=== PATIENT | female | born 2000 | race Caucasian/White ===

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

== ENCOUNTER 2018-02-03 13:59 | Observation (INO) | payer OTHER ==
--- OUTSIDE RECORDS SUMMARY | 2018-02-03 14:05 | XMS REPORT ---
:2000 External Reference #:[id number] Author Organization [facility] Address [address] [place] [id number] Phone [phone] Care Team Providers Name Role Phone Caleb Pardo MD Primary Care Physician Unavailable Payers Type Date Identification Numbers Payment Provider Subscriber Commercial Effective: Policy Number: [id number] [employer]etang[employer] Wadecy Ayala 2014 PayID: [id number] [address] [place] [address] Commercial Effective: 2014 Policy Number: Mary Estrella Marissa Ayala [id number] Expires: 2014 PayID: [id number] [address] [place] [address] Commercial Effective: 2014 Policy Number: Cigang[employer]/Conn Yoli Ayala [id number] [employer] Expires: 2014 Group Number: [id number] [address] [place] [address] PayID: [id number] ARIES Mckeon [id number] Problems Date Description Provider Status Onset: 12/06/2014 Dysfunctional uterine bleeding Caleb Pardo M.D. Active Onset: 12/06/2014 Acne Caleb Pardo M.D. Active Social History Type Date Description Comments Smoking Patient has never smoked Smoking No Exposure To Secondhand Smoke Allergies, Adverse Reactions, Alerts Date Description Reaction Status Severity Comments 10/02/2016 Penicillins active Medications Medication Date Status Form Strength Qnty SIG Indications Ordering Provider Depo-Provera Active Suspension 150mg/ml 150mh Unknown /0000 intramuscular q3mo No Active 11/29 Hx Unknown Medications /2017 - 12/20 Cryselle-28 03/22 Hx Tablets 0.3-30mg- 28tab 2 by mouth N92.4 Yonit T. /2016 mcg s every 12 Estrin, - hours until M.D. 07/06 bleeding /2016 stops then continue once daily Prilosec OTC 01/[address] 20mg 30tab 1 tab by R11.11 Mavis s mouth morning Uphoff, - and evening x M.D. 07/06 2 No Active 11/22 Hx Unknown Medications /2014 - 10/02 Chateal Hx Tablets 0.15-30mg Unknown /0000 -mcg - 07/06 Mirena (52 00 Hx IUD 20mcg/24H Unknown MG) /0000 R - 11/28 Medications Administered in Office Medication Date Status Form Strength Qnty SIG Indications Ordering Provider Immunization 12/20/ Administered Injection Marie Administration 2017 MARTHA Guerra Single Or Combination TB Intradermal 12/20/ Administered Injection Marie Test 2017 MARTHA Guerra Immunization 10/02/ Administered Injection Caleb G. Administration 2015 Torrado, Single Or M.D. Combination Immunization 09/30/ Administered [...] 12/06/ Administered Injection Caleb G. Administration 2014 Torrado, Single Or M.D. Combination Immunizations CPT Code Status Date Vaccine Lot # [id number] Given 08/17/2017 Flu Quadrivalent 11479 Given 10/02/2016 Flu Quadrivalent [id number] 83808 Given 08/30/2015 Flu Quadrivalent [id number] 43677 Given 12/06/2014 Menactra [id number] 36504 Given 09/08/2013 Influenza Virus Vaccine, Split Virus, 6-35 Months Age Intramuscul 03136 Given 02/05/2012 Gardasil 28546 Given 09/07/2011 Influenza Virus Vaccine, Split Virus, 6-35 Months Age Intramuscul 96931 Given 07/21/2010 Influenza Virus Vaccine, Split Virus, 6-35 Months Age Intramuscul 47642 Given 05/01/2010 Gardasil 33891 Given 07/11/2009 Tdap 27420 Given 07/11/2009 Influenza Virus Vaccine, Split Virus, 6-35 Months Age Intramuscul 70286 Given 07/11/2009 Gardasil 64577 Given 06/15/2008 Menactra 04112 Given 06/15/2008 Hepatitis A Pediatric 60679 Given 06/10/2007 Varicella (Chicken Pox) Vaccine 58991 Given 06/10/2007 Hepatitis A Pediatric 04301 Given 06/20/2003 DTaP Vaccine Younger Than 7 40217 Given 06/20/2003 MMR Vaccine, Live, For Subcutaneous Use 66976 Given 06/20/2003 Polio Injectable 79191 Given 02/04/2001 Pneumovax 40521 Given 12/19/1999 DTaP Vaccine Younger Than 7 20519 Given 12/19/1999 Hib Vaccine 90619 Given 09/08/1999 Varicella (Chicken Pox) Vaccine 24836 Given 09/08/1999 Polio Injectable 55775 Given 09/08/1999 MMR Vaccine, Live, For Subcutaneous Use 64225 Given 03/11/1999 Hib Vaccine 96693 Given 03/11/1999 DTaP Vaccine Younger Than 7 55544 Given 03/11/1999 Hepatitis B Vaccine Pediatric/Adolescent 72204 Given 1998 Polio Injectable 55955 Given 1998 DTaP Vaccine Younger Than 7 40222 Given 1998 Hib Vaccine 03414 Given 1998 Polio Injectable 77478 Given 1998 DTaP Vaccine Younger Than 7 13378 Given 1998 Hib Vaccine 40387 Given 1998 Hepatitis B Vaccine Pediatric/Adolescent 72578 Given 1998 Hepatitis B Vaccine Pediatric/Adolescent Vital Signs Date Vital Result Comment 12/20/2017 Body Temperature 97.2 F Heart Rate 80 /min Respiratory Rate 18 /min BP Systolic 122 mmHg BP Diastolic 60 mmHg Weight 188.12 lb Weight in kg's 85.334 Height 64.25 inches 5'4.25" BMI (Body Mass Index) 32.0 kg/m2 Body Mass Index Percentile 96 % Height Percentile 49 % Weight Percentile 9611/29/2017 Body Temperature 99.7 F Heart Rate 104 /min Respiratory Rate 12 /min BP Systolic 140 mmHg BP Diastolic 84 mmHg Weight 185.00 lb Weight in kg's 83.916 Height 64.25 inches 5'4.25" BMI (Body Mass Index) 31.5 kg/m2 Body Mass Index Percentile 95 % O2 % BldC Oximetry 98 % Height Percentile 49 % Weight Percentile 9607/07/2017 Body Temperature 98.6 F Heart Rate 112 /min Respiratory Rate 12 /min BP Systolic 117 mmHg BP Diastolic 78 mmHg Blood Pressure Percentile 73 % Weight 168.25 lb Weight in kg's 76.318 Height 64.25 inches 5'4.25" BMI (Body Mass Index) 28.7 kg/m2 Body Mass Index Percentile 92 % Height Percentile 50 % Weight Percentile 03/22/2017 Body Temperature 98.9 F Heart Rate 88 [...] lb Weight in kg's 61.860 Weight Percentile 6911/25/2016 Body Temperature 98.9 F Heart Rate 80 [...] % Height Percentile 50 % Weight Percentile 69th 12/06/2014 Body Temperature 99.8 F Heart Rate 87 /min Respiratory Rate 12 /min BP Systolic 121 mmHg BP Diastolic 71 mmHg Blood Pressure Percentile 82 % Weight 151.00 lb Weight in kg's 68.494 Height 63.6 inches 5'3.60" BMI (Body Mass Index) 26.2 kg/m2 Body Mass Index Percentile 90 % Height Percentile 43 % Weight Percentile 88th 11/22/2014 Body Temperature 98.9 F Heart Rate 79 [...] Test Date Test Result H/L Range Note CBC Auto Diff 12/21/2017 White Blood Count 5.2 10^3/uL 3.5-10.8 Red Blood Count 5.34 10^6/uL 4.0-5.4 Hemoglobin 14.7 g/dL 12.0-16.0 Hematocrit 43 % 35-47 Mean Corpuscular Volume 81 fL 80-97 Mean Corpuscular Hemoglobin 28 pg 27-31 Mean Corpuscular HGB Conc 34 g/dL 31-36 Red Cell Distribution Width 14 % 10.5-15 Platelet Count 307 10^3/uL 150-450 Mean Platelet Volume 8 um3 7.4-10.4 Abs Neutrophils 3.0 10^3/uL 1.5-7.7 Abs Lymphocytes 1.7 10^3/uL 1.0-4.8 Abs Monocytes 0.4 10^3/uL 0-0.8 Abs Eosinophils 0.1 10^3/uL 0-0.6 Abs Basophils 0 10^3/uL 0-0.2 Abs Nucleated RBC 0 10^3/uL Granulocyte % 57.9 % 38-83 Lymphocyte % 31.8 % 25-47 Monocyte % 8.4 % 1-9 Eosinophil % 1.1 % 0-6 Basophil % 0.8 % 0-2 Nucleated Red Blood Cells % 0.1 Comp Metabolic Panel 12/21/2017 Sodium 136 mmol/L 133-145 Potassium 4.2 mmol/L 3.5-5.0 Chloride 104 mmol/L 101-111 Co2 Carbon Dioxide 27 mmol/L 22-32 Anion Gap 5 mmol/L 2-11 Glucose 86 mg/dL 70-100 Blood Urea Nitrogen 8 mg/dL 6-24 Creatinine 0.86 mg/dL 0.51-0.95 BUN/Creatinine Ratio 9.3 8-20 Calcium 9.9 mg/dL 8.6-10.3 Total Protein 7.2 g/dL 6.4-8.9 Albumin 4.4 g/dL 3.2-5.2 Globulin 2.8 g/dL 2-4 Albumin/Globulin Ratio 1.6 1-3 Total Bilirubin 0.80 mg/dL 0.2-1.0 Alkaline Phosphatase 70 U/L 34-104 Alt 22 U/L 7-52 Ast 17 U/L 13-39 Egfr Non- 85.0 >60 Egfr 109.3 >60 1 Laboratory test finding 12/21/2017 Hemoglobin A1c (Glyco HGB) 4.8 % 4.0- 5.6 2 TSH (Thyroid Stim Horm) 4.15 mcIU/mL 0.34-5.60 Lipid Profile (Trig/Chol/HDL) 12/21/2017 Triglycerides 58 mg/dL 3 Cholesterol 152 mg/dL 4 HDL Cholesterol 53.5 mg/dL 5 LDL Cholesterol 87 mg/dL 6 .CBC W/Auto Differential 12/20/2017 White Blood Count Ser Auto CNT 6.3 Absolute Lymphocytes 2.4 Absolute Monocytes 0.6 Absolute Neutrophils Auto CNT 3.4 Lymph% 38.0 [place]idan% Auto Count BLD 8.8 Neutrophil % 53.2 RBC Red Blood Count 5.27 Hemoglobin Blood 14.2 Hematocrit 46.5 MCV (Corpuscular Volume) 88.2 MCH (Corpuscular Hemoglobin) 26.9 MCHC (Corpuscular Hemog Conc) 30.5 RDW 13.0 Platelet Count Blood Auto CNT 312 MPV 7.5 .Cholesterol Screening 12/20/2017 Cholesterol Total Mass/Vol 148 HDL Cholesterol Mass/Vol >100 Triglycerides Ser/Plas Mass/VL 66 LDL Cholesterol Mass/Vol n/a Non-HDL Cholesterol QN Ser/PLS n/a LDL/HDL Ratio n/a Xray 11/29/2017 Chest 2 Views <pending> Order 11/29/2017 Oximetry - Pulse or Ear 98 GC/Chlamydia 07/07/2017 Chlamydia trachomatis Negative Negative 7 Amplified Rna Rna Neisseria gonorrhoeae (GC) Rna Negative Negative 7 Laboratory test finding 07/07/2017 .Urine II neg Laboratory test finding 04/16/2017 (HCG) Urine Negative Negative 8 .CBC W/Auto Differential 03/22/2017 White Blood Count Ser Auto 5.4 CNT Absolute Lymphocytes 2.1 Absolute Monocytes 0.5 Absolute Neutrophils Auto CNT 2.8 Lymph% 38 [place]idan% Auto Count BLD 9.3 Neutrophil % 52.7 [...] Absolute Neutrophils Auto CNT 2.2 Lymph% 43.8 [place]% Auto Count BLD 10.2 Neutrophil % 46.0 [...] Bilirubin neg Ua Ketones neg Ua Specific [place] 1.015 Ua Blood Qual neg Ua PH Test Strip 6.5 Ua Protein neg Ua Urobilinogen neg Ua Nitrate neg Ua Leukocytes neg .CBC W/Auto Differential 12/06/2014 White Blood Count Ser Auto CNT 6.9 Absolute Lymphocytes 2.1 Absolute Monocytes 0.7 Absolute Neutrophils Auto CNT 4.1 Lymph% 30.0 [place]idan% Auto Count BLD 10.6 Neutrophil % 59.4 RBC Red Blood Count 4.80 Hemoglobin Blood 15.2 Hematocrit 45.2 MCV (Corpuscular Volume) 94.2 MCH (Corpuscular Hemoglobin) 31.7 MCHC (Corpuscular Hemog Conc) 33.6 RDW 14.4 Platelet Count Blood Auto CNT 258 MPV 7.7 .Urinalysis DIP Only 11/23/2014 Ua Color yellow Ua Clarity clear Ua Glucose neg Ua Bilirubin neg Ua Ketones neg Ua Specific [place] 1.030 Ua Blood Qual moderate Ua PH Test Strip 6 Ua Protein tr Ua Urobilinogen neg Ua Nitrate neg Ua Leukocytes neg Laboratory test finding 11/22/2014 Stool Culture (SEE NOTE) 9, 10 O P: Giardia/Cryptospor Screen (SEE NOTE) 9, 11 GC/Chlamydia Amplified Rna 11/22/2014 Chlamydia trachomatis Rna Negative Negative Neisseria gonorrhoeae (GC) Rna Negative Negative 12 .CBC W/Auto Differential 11/22/2014 White Blood Count Ser Auto CNT 5.9 Absolute Lymphocytes 1.7 Absolute Monocytes 0.5 Absolute Neutrophils Auto CNT 3.7 Lymph% 29.4 Sheridan% Auto Count BLD 7.8 Neutrophil % 62.8 RBC Red Blood Count 4.84 Hemoglobin Blood 15.7 Hematocrit 44.0 MCV (Corpuscular Volume) 90.9 MCH (Corpuscular Hemoglobin) 32.4 MCHC (Corpuscular Hemog Conc) 35.7 RDW 11.5 Platelet Count Blood Auto CNT 205. MPV 8.1 .Urinalysis DIP Only 11/22/2014 Ua Color yellow Ua Clarity clear Ua Glucose neg Ua Bilirubin neg Ua Ketones neg Ua Specific [place] 1.020 Ua Blood Qual large Ua PH [...] 10.5-15.0 White Blood Count 4.9 4.5-13.5 1 Because ethnic data is not always readily available, this report includes an eGFR for both -Americans and non- Americans. The National Kidney Disease Education Program (NKDEP) does not endorse the use of the MDRD equation for patients that are not between the ages of 18 and 70, are , have extremes of body size, muscle mass, or nutritional status, or are non- or non-. According to the National Kidney Foundation, irrespective of diagnosis, the stage of the disease is based on the level of kidney function: Stage Description GFR(mL/min/1.73 m(2)) 1 Kidney damage with normal or decreased GFR 90 2 Kidney damage with mild decrease in GFR 60-89 3 Moderate decrease in GFR 30-59 4 Severe decrease in GFR 15-29 5 Kidney failure <15 (or dialysis) 2 Therapeutic target for the treatment of diabetes mellitus patients is <7% HBA1C, and in selective patients <6.0%. Please refer to [place] Diabetes Association diabetic care guidelines for further information. 3 Desirable: <150 Borderline High: 150-199 High: 200-499 Very High: >500 4 Desirable: <200 Borderline High: 200-239 High: >239 5 Low: <40 Desirable: 40-60 High: >60 6 Desirable: <100 Near Optimal: 100-129 Borderline High: 130-159 High: 160-189 Very High: >189 7 [id number] If is still suspected, please repeat test after 48 to 72 hours. This test detects intact HCG only and is indicated for the early detection of . 9 Unable to perform Shiga Toxin testing. Specimen collection~requirements were not met. Stool for 10 RUN DATE: 11/25/14 [facility] LAB LIVE PAGE 1 RUN TIME: [address] [place] [address] Specimen Inquiry Name: JOSIANE AYALA : [address]: Caleb Pardo MD Acct: [id number] Unit: [id number] AGE: 14 Location: [facility] Re11/22/14 SEX: F Status: REG REF SPEC: [id number] TAVO: 11/22/14-[address] [facility] [address]: Caleb Pardo MD REQ: [id number] RECD: 11/23/141054 STATUS: COMP _ SOURCE: STOOL [facility]: ORDERED: Stool Culture COMMENTS: Unable to perform Shiga Toxin testing. Specimen collection requirements were not met. Stool for Shiga Toxin testing must be received by the laboratory within 2 hours of collection or placed in [employer]Te[employer] transport medium. Verbal to [facility] by [id number] at 1201 on 11/23/14. *please interpret stool culture result with caution* Stool specimen was not placed into appropriate transport medium within recommended time-frame. Testing may be less Sensitive. QUERIES: Provider Requisition # [id number] Procedure Result Verified Site Stool Culture Final [...] performed at Main Lab DEPARTMENT OF PATHOLOGY, [facility] [employer] [place] [address] Bacilio Suggs M.D. Director [facility] # [id number] RUN DATE: 11/25/14 [facility] LAB LIVE PAGE 2 RUN TIME: [address] [place] [address] Specimen Inquiry Patient: JOSIANE AYALA [id number] (Continued) Specimen: [id number] Collected: 11/22/14 Received: 11/23/14-1053 (Continued) Procedure Result Verified Site Shiga Toxin 1 2 Final 11/23/14- 1204 ML Test not performed END OF REPORT * ML=Testing performed at Main Lab DEPARTMENT OF PATHOLOGY, [facility] [employer] [place], [place] [address] Bacilio Suggs M.D. Director [facility] # [id number] RUN DATE: 11/23/14 [facility] LAB LIVE PAGE 1 RUN TIME: 1433 [facility] [place], [place] [address] Specimen Inquiry Name: JOSIANE AYALA : [address]: Caleb Pardo MD Acct: [id number] Unit: [id number] AGE: 14 Location: [facility] Re11/22/14 SEX: F Status: REG REF SPEC: [id number] TAVO: 11/22/[address] [facility] [address]: Caleb Pardo MD REQ: [id number] RECD: 11/23/141054 STATUS: COMP _ SOURCE: STOOL SPDESC: ORDERED: O P: Giar/Crypt QUERIES: Provider Requisition # [id number] Procedure Result Verified Site O P: Giardia/Cryptospor [...] is requested. Contact the Microbiology Department at [phone]. TEST LIMITATIONS: As with all diagnostic procedures, [...] performed at Main Lab DEPARTMENT OF PATHOLOGY, [facility] [employer] [place], [place] [address] Bacilio Suggs M.D. Director [facility] # [id number] RUN DATE: 11/23/14 [facility] LAB LIVE PAGE 2 RUN TIME: 0850 [facility] [place], [place] [address] Specimen Inquiry Patient: JOSIANE AYALA [id number] (Continued) Specimen: [id number] Collected: 11/22/14 Received: 11/23/14-1053 (Continued) Procedure Result Verified Site O P: Giardia/Cryptospor Screen Final (continued) 11/23/14- 1432 END OF REPORT * ML=Testing performed at Main Lab DEPARTMENT OF PATHOLOGY, [address] [place] [address] Bacilio Suggs M.D. Director [facility] # [id number] 12 Female urine specimens have been self-validated by [facility] and have been granted conditional assay approval by [facility]. Procedures Date CPT Code Description Status 12/20/2017 14066 Vision Screening Completed 12/20/2017 08387 Admin Patient Focused Health Risk Assessment Instrument Completed 12/20/2017 69927 Brief Emotional/Behav Assessment W/ Scoring Doc Per Completed Standard Inst 12/20/2017 96021 Hearing Screen, Pure Tone, Air Completed 12/20/2017 12550 Remove Impacted Cerumen Completed 12/20/2017 60374 Collection Of Capillary Blood Specimen Completed 11/29/2017 22348 Pulse Oximetry Completed 03/22/2017 88287 Collection Of Capillary Blood Specimen Completed 11/25/2016 00492 Pulse Oximetry Completed 10/02/2016 45312 Vision Screening Completed 10/02/2016 22759 Hearing Screen, Pure Tone, Air Completed 10/02/2016 78499 Collection Of Capillary Blood Specimen Completed 12/06/2014 23956 Vision Screening Completed 12/06/2014 69958 Hearing Screen, Pure Tone, Air Completed 12/06/2014 90827 Collection Of Capillary Blood Specimen Completed 11/22/2014 25221 Collection Of Capillary Blood Specimen Completed Encounters Type Date Location Provider CPT E/M Dx Office Visit 12/20/2017 3:15p [place] [address] Z00.01 E66.9 H61.23 Z13.89 Z71.89 Office Visit 11/29/2017 11:45a [facility] Jaleel Sanchez M.D. 25964 J01.90 Office Visit 07/07/2017 11:30a [facility] Caleb Pardo M.D. 85552 N64.4 Office Visit 03/22/2017 2:00p [facility] Kota Cheng M.D. 00279 N92.4 Office Visit 01/21/2017 9:30a [facility] Mavis Crawley M.D. 50982 R11.11 Office Visit 01/15/2017 12:00p [facility] Mavis Crawley M.D. 01802 R11.11 Office Visit 11/25/2016 12:00p [place] [address] J06.9 Office Visit 10/07/2016 12:00p [place] [address] R07.1 Office Visit 10/02/2016 2:45p [facility] Caleb Pardo M.D. 65518 Z00.129 Office Visit 12/06/2014 2:15p [facility] Caleb Pardo M.D. 51350 V20.2 626.6 706.1 v65.42 Office Visit 11/22/2014 12:00p [facility] Caleb Pardo M.D. 10582 789.03 599.70 Plan of Care 12/20/2017 - Marie Guerra NPZ00.01 Encounter for general adult medical exam w abnormal extjcllqJ36.9 Obesity, unspecifiedComments:Continue to work out as you have been. Continue to follow healthy diet. We will obtain labs as discussed due to weight gain and family history of hypothroidism. Ideally you are fasting for the labwork,so have done on a morning before work.H61.23 Impacted cerumen, pfzvygjfwS53.89 Encounter for screening for other bumnpiaiJ53.89 Other specified counseling
[2018-02-03] MEDS ORDERED: NS 0.9% 1000 ML* 1,000 ML IV ONE (14:30)
[2018-02-03] MEDS ORDERED: D5W 1/2 NS KCl 20 Meq 1000 ML* 1,000 ML IV SCH (15:00)
[2018-02-03 17:33] LABS: ABS Basophils 0 10^3/ul (0-0.2); ABS Eosinophils 0.1 10^3/ul (0-0.6); ABS Lymphocytes 2.8 10^3/ul (1.0-4.8); ABS Monocytes 0.5 10^3/ul (0-0.8); ABS Neutrophils 4.1 10^3/ul (1.5-7.7); ABS Nucleated RBC 0 10^3/ul; Eosinophil % 0.9 % (0-6); Hematocrit 40 % (35-47); Hemoglobin 13.7 g/dl (12.0-16.0); Lymphocyte % 37.3 % (25-47); Mean Corpuscular HGB Conc 34 g/dl (31-36); Mean Corpuscular Hemoglobin 28 pg (27-31); Mean Corpuscular Volume 82 fL (80-97); Nucleated Red Blood Cells % 0.1; Platelet Count 278 10^3/ul (150-450); Red Cell Distribution Width 13 % (10.5-15); White Blood Count 7.6 10^3/ul (3.5-10.8)
[2018-02-03 18:03] LABS: EGFR Non-African American 89.8 (>60)
[2018-02-03] MEDS ORDERED: Ibuprofen TAB* 600 MG ONE (18:20)
[2018-02-03] MEDS ORDERED: Ibuprofen TAB* 600 MG PO ONE (18:23)
[2018-02-03 19:29] VITALS: BP 116/55
--- NOTE | 2018-02-03 23:14 | HP ---
Chief Complaint: dizziness History of Present Illness: Admission/Discharge note and summary Kristie present to [facility] with cc of dizziness for 3 days. occurring episodically. improved with lying down. worsened with driving. increased with positional changes. mild nausea. no vomiting. Has had decreased appetite but continues to eat and drink. normal b/b. Denies visual changes or h/a. she denied tinnitis or vertigo Is sexually active. deies unprotected sex. Urine test is negative today. Has h/o menorrhagia. continues to have heavy menses lasting 7 days. has been on Depo which seems to be helping . H/H is the office is normal. In the office BP was low at 100/60 (she is usually 120/70) her urine was quite concentrated and orthostatic measurements were positive. A dx of dehydration was made and Kristie was admitted obv for ivf hydration. She responded well to normal saline bolus and ivf's running at 1 1/2 maintenance. She c/o h/a briefly that responded well to ibuprofen. She still felt slightly unsteady with positional changes but was improved. Allergies: Allergies MS Penicillins [PCN] Allergy (Verified 02/03/18 14:36) Hives/Diff.Breathing/Itching Past Medical Problems: menorrhagia asthma Outpatient Medications: Potassium Chloride/Dextrose (D5w 1/2 Ns Kcl 20 Meq 1000 Ml*) 1,000 mls @ 150 mls/hr IV PER RATE [facility] Last Admin: 02/03/18 17:51 Dose: 150 mls/hr Immunizations: utd Weight: 87.09 kg Medication Orders: Current Medications Potassium Chloride/Dextrose (D5w 1/2 Ns Kcl 20 Meq 1000 Ml*) 1,000 mls @ 150 mls/hr IV PER RATE [facility] Last Admin: 02/03/18 17:51 Dose: 150 mls/hr Home Medications: Home Medications Medication Instructions Recorded Confirmed Type Albuterol/Ipratropium NEB.TI* 1 inh INHH Q24HR 12/01/17 02/03/18 History [Duoneb (Albuterol 2.5 MG/Ipratropium 0.5 MG)] predniSONE TAB* [Deltasone TAB*] 50 mg PO DAILY #4 tab 12/01/17 02/03/18 Rx Results/Investigations Lab Results: 02/03/18 02/03/18 17:10 17:10 WBC 7.6 RBC 4.90 Hgb 13.7 Hct 40 MCV 82 MCH 28 MCHC 34 RDW 13 Plt Count 278 MPV 8.0 Neut % (Auto) 54.7 Lymph % (Auto) 37.3 Dillon % (Auto) 6.6 Eos % (Auto) 0.9 Baso % (Auto) 0.5 Absolute Neuts (auto) 4.1 Absolute Lymphs (auto) 2.8 Absolute Monos (auto) 0.5 Absolute Eos (auto) 0.1 Absolute Basos (auto) 0 Absolute Nucleated RBC 0 Nucleated RBC % 0.1 Sodium 140 Potassium 4.0 Chloride 107 Carbon Dioxide 24 Anion Gap 9 BUN 8 Creatinine 0.82 Est GFR ( Amer) 115.5 Est GFR (Non-Af Amer) 89.8 BUN/Creatinine Ratio 9.8 Glucose 81 Calcium 9.1 Vitals Vital Signs: Vital Signs 02/03/18 02/03/18 02/03/18 16:45 16:51 17:52 Temperature 99.0 F Pulse Rate 79 Respiratory 20 20 20 Rate Blood Pressure 142/57 (mmHg) O2 Sat by Pulse 100 Oximetry 02/03/18 02/03/18 19:13 20:00 Temperature 99.1 F Pulse Rate 101 Respiratory 20 20 Rate Blood Pressure 116/55 (mmHg) O2 Sat by Pulse 100 Oximetry Physical Exam General Appearance: alert, comfortable General Appearance Description: obese teen in NAD Hydration Status: mucous membranes moist, normal skin turgor, brisk capillary refill, extremities warm, pulses brisk Head: normocephalic Pupils: equal, round, react to light and accommodation Extraocular Movement: symmetric Conjunctivae: normal Fundi: normal optic discs Tympanic Membranes: normal Nasal Passages: normal Mouth: normal buccal mucosa, normal teeth and gums, normal tongue Throat: normal posterior pharynx Neck: supple, full range of motion, normal thyroid palpation Cervical Lymph Nodes: no enlargement Lungs: Clear to auscultation, equal breath sounds Heart: S1 and S2 normal, no murmurs Abdomen: soft, no distension, no tenderness, normal bowel sounds, no masses, no hepatosplenomegaly Neurological: cranial nerves II-XII functional/symmetrical, deep tendon reflexes 2+ and symmetrical, normal Romberg, normal finger/nose, normal heel/ toe walk, normal memory Assessment: Dizziness likely due to mild dehydration. responded well to ivf hydration Menorrhagia - reviewed past w/up. obtained VWf panel Plan: follow up in office for lab results and continued management of dizziness should it persist. If persists will need Neurology consultation, possibly ENT Will need to monitor BP as seems somewhat labile - however never hypertensive. Orders: Orders Category Date Time Status Ambulate . TOLERATED Activity 02/03/18 14:20 Ordered Regular Unrestricted Diet Dietary 02/03/18 Dinner Active von Willebrand Profile Routine Lab 02/03/18 20:41 Received D5W 1/2 NS KCl 20 Meq 1000 ML* 1,000 ml Med 02/03/18 15:00 Active IV PER RATE Intake and Output 06,14,2200 Nursing 02/03/18 14:18 Active Vital Signs - Manual Entry QSHIFT Nursing 02/03/18 14:18 Active Weigh Patient DAILY@0600 Nursing 02/03/18 14:18 Active Clinical Screening Routine Oth 02/03/18 14:18 Ordered Patient Problems: Patient Problems Problem Status Onset Code Dizziness Acute R42 Menorrhagia with regular cycle Acute N92.0
== END 2018-02-04 | disposition home or self-care (01) ==
LOC: MCHPEDS 13:59
PROVIDERS: ADMIT Pediatrics; ATTEND Pediatrics
DX: R42 Dizziness and giddiness (principal); J45.909 Unspecified asthma, uncomplicated; Z79.899 Other long term (current) drug therapy; N92.0 Excessive and frequent menstruation with regular cycle
CPT/HCPCS: 36415; 80048; 85025; 85240; 96360; 96361; A9270-GY; G0378; G0379

== ENCOUNTER 2018-06-26 10:09 | Emergency (ER) | payer OTHER ==
[2018-06-26 10:25] VITALS: BP 121/74
--- NOTE | 2018-06-26 11:54 | UC ---
Ear Complaint HPI - HPI Summary HPI Summary: 17 y/o female presents to the urgent care accompany by mother c/o left ear pain and decrease hearing for the past week. She developed ear pain in the past 3 days. Pain is 7/10. She has taken Ibuprofen PO 400mg PO to alleviate symptoms w/ o any improvement, Pt denies fever, dizziness, CRAWFORD, dental pain. sore throat, SOB , chest pain, abdominal pain, N/V/D. Pt is UTD w/ all vaccines for his age. - History of Current Complaint Chief Complaint: UCEar Stated Complaint: EAR PAIN Time Seen by Provider: 06/26/18 11:53 Hx Obtained From: Patient, Family/Certified Nurses' Aide - mother Hx Last Menstrual Period: 06/14/18 ?: No Onset/Duration: Gradual Onset, Lasting Weeks - 1 week, Worse Since - 3 days Severity Initially: Mild Severity Currently: Moderate Pain Intensity: 6 Pain Scale Used: 0-10 Numeric Aggravating Factors: Other - touch Alleviating Factors: OTC Meds Associated Signs/Symptoms: Positive: Hearing Loss - Allergies/Home Medications Allergies/Adverse Reactions: Allergies Allergy/AdvReac Type Severity Reaction Status Date / Time Penicillins Allergy Hives/Diff. Verified 06/26/18 10:25 Breathing/I tching PMH/Surg Hx/FS Hx/Imm Hx Previously Healthy: Yes Other Cardiovascular History: Tachycardia Respiratory History: Asthma - Surgical History Surgical History: Yes Surgery Procedure, Year, and Place: D & C 2016 - Family History Known Family History: Positive: Hypertension, Diabetes Negative: Cardiac Disease - Social History Occupation: Student Lives: With Family Alcohol Use: None Substance Use Type: None Smoking Status (MU): Never Smoked Tobacco - Immunization History Most Recent Influenza Vaccination: 11/2017 Most Recent Pneumonia Vaccination: none Vaccination Up to Date: Yes Review of Systems Constitutional: Negative Skin: Negative Eyes: Negative ENT: Ear Ache - left ear, Nasal Discharge, Sinus Congestion, Other - decrease hearing Respiratory: Negative Cardiovascular: Negative Gastrointestinal: Negative Genitourinary: Negative Motor: Negative Neurovascular: Negative Musculoskeletal: Negative Neurological: Negative Psychological: Negative Is Patient Immunocompromised?: No All Other Systems Reviewed And Are Negative: Yes Physical Exam - Summary Physical Exam Summary: Vital signs: reviewed General: well developed, well nourished female adolescent sitting in the examining table w/o any apparent distress Skin: [place], warm and dry, no evidence of atopic dermatitis, psoriasis, seborrhea. HEENT: -Head: atraumatic, non tender; no scalp dermatitis. -Eyes: sclera and conjunctiva clear, PERRLA, EOMI -Ears: no pre- or postauricular lymphadenopathy or erythema; RT external ear canal with erythema and yellowish purulent discharge, pinna tenderness on palpation, Rt TM injected w/ erythema, LF external ear canal clear and LF TM WNL. TMs normal w/out bulging or retraction. Good light reflex. No fluid level, vesicles, or bullae. No perforation. -Nose/Face: erythematous and edematous nasal mucosa with clear rhinorrhea, no frontal or maxillary sinus tender to palpation. -Mouth/Throat: Mucous membrane moist, posterior pharynx clear, no erythema or exudates. Neck: supple, FROM, nontender, no lymphadenopathy, no meningismus. Chest: Clear to auscultation, normal breath sounds Abd: soft, Bowel sounds active, Nontender. Back: no spinal or CVAT Neuro: A&O x4, GCS 15, no focal neuro deficits, normal behavior for age. Triage Information Reviewed: Yes Vital Signs: Initial Vital Signs Temp 99.3 F 06/26/18 10:22 Pulse 80 06/26/18 10:22 Resp 12 06/26/18 10:22 BP 121/74 06/26/18 10:22 Pulse Ox 100 06/26/18 10:22 Ear Complaint Course/Dx - Course Course Of Treatment: 17 y/o female presents to the urgent care accompany by mother c/o left ear pain and decrease hearing for the past week. She developed ear pain in the past 3 days. Pain is 7/10. She has taken Ibuprofen PO 400mg PO to alleviate symptoms w/o any improvement, Pt denies fever, dizziness, CRAWFORD, dental pain. sore throat, SOB, chest pain, abdominal pain, N/V/D. Pt is UTD w/ all vaccines for his age. Hx obtained. Pt w/ both left otitis externa and Media on examination. Pt PCP allergic.Pt Rx Cortisporin otic drops and Z-oscar PO. Advised to take ibuprofen PO OTC for pain. If symptoms do not improve or worsen to return to the urgent care or f/u with PCP for further management. Mother and Pt understood and agreed with D/C instructions. - Differential Dx/Diagnosis Differential Diagnosis/HQI/PQRI: Barotrauma, Cerumen Impaction, Otitis Externa, Otitis Media, Perforated TM, URI Provider Diagnoses: 1- Left otitis Externa and Media. 2- Otalgia Discharge - Sign-Out/Discharge Documenting (check all that apply): Patient Departure - D/c home All imaging exams completed and their final reports reviewed: Yes - Discharge Plan Condition: Stable Disposition: HOME Prescriptions: Azithromyxin OSCAR (NF) [Z-Oscar (Zithromax) 250 mg tabs #6] 2 tab PO .TODAY, THEN 1 DAILY #6 tab Ibuprofen TAB* [Motrin TAB* 600 MG] 600 mg PO Q6H PRN #30 tab PRN Reason: otalgia Neomyc/Polym/HC 1% OTIC SUSP* [Cortisporin Otic Susp 1%*] 4 drop LEFT EAR TID # 1 btl Patient Education Materials: Ear Infection (ED) Referrals: Caleb Pardo MD [Primary Care Provider] - 3 Days Additional Instructions: 1-Please apply otic antibiotic on your left ear as directed. Take Z-oscar full course of treatment for your Otitis media 2-Take ibuprofen PO q6-8hrs after meals for pain. 3-If symptoms do not improve or worsen please f/u with your Senior Principal Software Engineer in 3 days or return to the urgent care for further evaluation and treatment. - Billing Disposition and Condition Condition: STABLE Disposition: Home
== END 2018-06-26 12:10 | disposition home or self-care (01) ==
LOC: UCEAST 10:09
DX: H60.92 Unspecified otitis externa, left ear (principal); H66.92 Otitis media, unspecified, left ear; Z88.0 Allergy status to penicillin
CPT/HCPCS: 99212; G0463

== ENCOUNTER 2018-06-28 10:29 | Emergency (ER) | payer OTHER ==
[2018-06-28 10:55] VITALS: BP 131/74
--- NOTE | 2018-06-28 11:45 | UC ---
Ear Complaint HPI - HPI Summary HPI Summary: SEEN HERE 2 DAYS AGO AND DX WITH LEFT OTITIS EXTERNA AND OTITIS MEDIA. TX WITH AZITH AND CORTISPORIN. STATES SHE IS WORSE NOW. INCREASED PAIN AND SWELLING EXTENDING INTO NECK. NO FEVER. - History of Current Complaint Chief Complaint: UCEar Stated Complaint: RECHECK EAR PAIN Time Seen by Provider: 06/28/18 11:11 Hx Obtained From: Patient Hx Last Menstrual Period: 06/13/18 Onset/Duration: Gradual Onset, Lasting Days, Still Present Severity Initially: Moderate Severity Currently: Moderate Pain Intensity: 8 Pain Scale Used: 0-10 Numeric Aggravating Factors: Nothing Alleviating Factors: Nothing Associated Signs/Symptoms: Positive: Discharge, Hearing Loss, Swelling @. Negative: URI Symptoms - Allergies/Home Medications Allergies/Adverse Reactions: Allergies Allergy/AdvReac Type Severity Reaction Status Date / Time Penicillins Allergy Hives/Diff. Verified 06/28/18 10:55 Breathing/I tching PMH/Surg Hx/FS Hx/Imm Hx Respiratory History: Asthma - Surgical History Surgical History: Yes Surgery Procedure, Year, and Place: D & C 2016 - Family History Known Family History: Positive: Hypertension, Diabetes, Other Negative: Cardiac Disease - Social History Alcohol Use: None Substance Use Type: None Smoking Status (MU): Never Smoked Tobacco - Immunization History Most Recent Influenza Vaccination: 11/2017 Most Recent Pneumonia Vaccination: none Vaccination Up to Date: Yes Review of Systems Constitutional: Negative ENT: Sore Throat, Ear Ache Respiratory: Negative Cardiovascular: Negative Gastrointestinal: Negative Musculoskeletal: Decreased ROM - NECK All Other Systems Reviewed And Are Negative: Yes Physical Exam Triage Information Reviewed: Yes Appearance: Well-Nourished, Pain Distress - MODERATE Vital Signs: Initial Vital Signs Temp 98.2 F 06/28/18 10:50 Pulse 84 06/28/18 10:50 Resp 18 06/28/18 10:50 BP 131/74 06/28/18 10:50 Pulse Ox 98 06/28/18 10:50 Vital Signs Reviewed: Yes Eyes: Positive: Conjunctiva Clear ENT: Positive: Hearing grossly normal, Pharynx normal, Other - RIGHT EAC AND TM NORMAL. SMALL AMOUNT CERUMEN. LEFT EAC SWOLLEN CLOSED WITH SOME DRAINAGE Neck: Positive: Other: - TENDER LEFT NECK/PREAURICULAR/POSTAURICULAR WITH PALPABLE FULLNESS AT ANGLE OF MANDIBLE. Respiratory: Positive: No respiratory distress, No accessory muscle use Cardiovascular: Positive: Pulses Normal Abdomen Description: Positive: Soft Musculoskeletal: Positive: No Edema Neurological: Positive: Alert Psychological: Positive: Normal Response To Family, Age Appropriate Behavior Skin: Negative: rashes Ear Complaint Course/Dx - Course Course Of Treatment: PT GETTING WORSE ON CORTISPORIN AND AZITH. NO FEVER. NO PROTRUSION OF PINNA. NO SWELLING INTO OP. SCHEDULED APPT WITH DR. NUNEZ WITH ENT TODAY AT 3:30PM. HYDROCODONE/APAP 5/325 X 1 GIVEN FOR PAIN. - Differential Dx/Diagnosis Provider Diagnoses: LEFT OTITIS EXTERNA - WORSE Discharge - Sign-Out/Discharge Documenting (check all that apply): Patient Departure All imaging exams completed and their final reports reviewed: No Studies - Discharge Plan Condition: Stable Disposition: HOME Patient Education Materials: Otitis Externa (ED) Forms: *Work Release Referrals: Caleb Pardo MD [Primary Care Provider] - If Needed Andreas Nunez MD [Medical Doctor] - (APPT SCHEDULED FOR YOU TODAY AT 3: 30PM) Additional Instructions: HYDROCODONE/APAP 5/325 X 1 GIVEN TODAY TO HELP WITH YOUR DISCOMFORT UNTIL YOU ARE SEEN BY ENT. APPT IS AT 3:30PM. PLEASE BRING YOUR INSURANCE CARD. - Billing Disposition and Condition Condition: STABLE Disposition: Home
[2018-06-28] MEDS ORDERED: HYDROcodone/ACETAMIN 5-325 MG* 1 TAB PO ONE (11:51)
== END 2018-06-28 12:00 | disposition home or self-care (01) ==
LOC: UCEAST 10:29
DX: H60.92 Unspecified otitis externa, left ear (principal); Z88.0 Allergy status to penicillin
CPT/HCPCS: 99212; G0463

== ENCOUNTER 2019-03-05 15:04 | Emergency (ER) | payer OTHER, BC ==
[2019-03-05 15:22] VITALS: BP 134/78
--- NOTE | 2019-03-05 15:39 | UC ---
Ear Complaint HPI - HPI Summary HPI Summary: 1 day of left ear pain, has had this before and reated to cortosporin. no other symptoms - History of Current Complaint Chief Complaint: UCGeneralIllness Stated Complaint: EAR COMPLAINT Time Seen by Provider: 03/05/19 15:18 Hx Obtained From: Patient Hx Last Menstrual Period: 1 month ago ?: Yes Onset/Duration: Sudden Onset, Lasting Days - 1 Severity Initially: Mild Severity Currently: Moderate Pain Intensity: 4 Associated Signs/Symptoms: Positive: Discharge - Allergies/Home Medications Allergies/Adverse Reactions: Allergies Allergy/AdvReac Type Severity Reaction Status Date / Time bacitracin [From Cortisporin] Allergy Swelling Verified 03/05/19 15:22 hydrocortisone Allergy Swelling Verified 03/05/19 15:22 [From Cortisporin] neomycin [From Cortisporin] Allergy Swelling Verified 03/05/19 15:22 Penicillins Allergy Hives/Diff. Verified 03/05/19 15:22 Breathing/I tching polymyxin B Allergy Swelling Verified 03/05/19 15:22 [From Cortisporin] PMH/Surg Hx/FS Hx/Imm Hx Previously Healthy: Yes - Surgical History Surgical History: Yes Surgery Procedure, Year, and Place: D & C 2016 - Family History Known Family History: Positive: Hypertension, Diabetes, Other Negative: Cardiac Disease - Social History Alcohol Use: None Substance Use Type: None Smoking Status (MU): Never Smoked Tobacco - Immunization History Most Recent Influenza Vaccination: 11/2017 Most Recent Pneumonia Vaccination: none Vaccination Up to Date: Yes Review of Systems All Other Systems Reviewed And Are Negative: Yes ENT: Positive: Ear Ache Is Patient Immunocompromised?: No Physical Exam Triage Information Reviewed: Yes Appearance: Well-Appearing, Well-Nourished, Pain Distress Vital Signs: Initial Vital Signs Temp 97.9 F 03/05/19 15:17 Pulse 80 03/05/19 15:17 Resp 16 03/05/19 15:17 BP 134/78 03/05/19 15:17 Pulse Ox 99 03/05/19 15:17 Vital Signs Reviewed: Yes Eye Exam: Normal ENT: Positive: Pharynx normal, TMs normal - right, left external canal has thick white discharge, TM is non red Dental Exam: Normal Neck exam: Normal Respiratory Exam: Normal Cardiovascular Exam: Normal Abdominal Exam: Normal Bowel Sounds: Positive: Present Musculoskeletal Exam: Normal Neurological Exam: Normal Psychological Exam: Normal Skin Exam: Normal Ear Complaint Course/Dx - Course Course Of Treatment: hx obtained, exam performed ,med reviewed, treaed for left otits externa and recommend follow up with her ENT if not improving - Differential Dx/Diagnosis Differential Diagnosis/HQI/PQRI: Otitis Externa, Otitis Media, Perforated TM Provider Diagnosis: Left otitis externa Discharge - Sign-Out/Discharge Documenting (check all that apply): Patient Departure All imaging exams completed and their final reports reviewed: No Studies - Discharge Plan Condition: Stable Disposition: HOME Prescriptions: Ofloxacin 0.3% (Ear Drop)* [Floxin 0.3% OTIC.TI (Ear Drop)] 10 drop LEFT EAR BID #1 btl Patient Education Materials: Otitis Externa (ED) Referrals: No Primary Care Phys,NOPCP [Primary Care Provider] - Additional Instructions: 1, use the drops as prescribed. 2. Warm compresses and ibuprofen for pain. 3. Follow upw ith ENT if you are not improving. - Billing Disposition and Condition Condition: STABLE Disposition: Home
== END 2019-03-05 15:45 | disposition home or self-care (01) ==
LOC: UCEAST 15:04
DX: H60.92 Unspecified otitis externa, left ear (principal); Z88.1 Allergy status to other antibiotic agents; Z88.0 Allergy status to penicillin
CPT/HCPCS: 99212; G0463

== ENCOUNTER 2019-03-30 18:30 | Emergency (ER) | payer OTHER, BC ==
[2019-03-30 19:57] VITALS: BP 136/88
--- NOTE | 2019-03-30 20:42 | UC ---
Respiratory Complaint HPI - HPI Summary HPI Summary: Kristie has had about a week of URI type symptoms. Her ears hurt left worse than the right. She has a nagging cough that keeps her awake at night. Her throat is sore. She's had no fevers or shortness of breath. - History of Current Complaint Chief Complaint: UCRespiratory Stated Complaint: COUGH Time Seen by Provider: 03/30/19 20:32 Hx Obtained From: Patient Hx Last Menstrual Period: 5 weeks ago Onset/Duration: Gradual Onset Severity Initially: Mild Severity Currently: Moderate Pain Intensity: 6 Character: Cough: Nonproductive Associated Signs And Symptoms: Positive: URI, Nasal Congestion Related History: Seasonal Allergies - Allergies/Home Medications Allergies/Adverse Reactions: Allergies Allergy/AdvReac Type Severity Reaction Status Date / Time bacitracin [From Cortisporin] Allergy Swelling Verified 03/30/19 19:57 hydrocortisone Allergy Swelling Verified 03/30/19 19:57 [From Cortisporin] neomycin [From Cortisporin] Allergy Swelling Verified 03/30/19 19:57 Penicillins Allergy Hives/Diff. Verified 03/30/19 19:57 Breathing/I tching polymyxin B Allergy Swelling Verified 03/30/19 19:57 [From Cortisporin] PMH/Surg Hx/FS Hx/Imm Hx Previously Healthy: Yes Respiratory History: Asthma - Surgical History Surgical History: Yes Surgery Procedure, Year, and Place: D & C 2016 - Family History Known Family History: Positive: Hypertension, Diabetes, Other Negative: Cardiac Disease - Social History Alcohol Use: None Substance Use Type: None Smoking Status (MU): Never Smoked Tobacco - Immunization History Most Recent Influenza Vaccination: 11/2017 Most Recent Pneumonia Vaccination: none Vaccination Up to Date: Yes Review of Systems All Other Systems Reviewed And Are Negative: Yes Constitutional: Positive: Fatigue Skin: Positive: Negative Eyes: Positive: Negative ENT: Positive: Sore Throat, Ear Ache, Nasal Discharge Respiratory: Positive: Cough Physical Exam - Summary Physical Exam Summary: She is nontoxic in appearance with stable vital signs. Triage Information Reviewed: Yes Appearance: Well-Appearing Vital Signs: Initial Vital Signs Temp 99 F 03/30/19 19:52 Pulse 83 03/30/19 19:52 Resp 17 03/30/19 19:52 BP 136/88 03/30/19 19:52 Pulse Ox 100 03/30/19 19:52 Vital Signs Reviewed: Yes Eyes: Positive: Conjunctiva Clear ENT: Positive: Pharyngeal erythema, Nasal congestion, TM dull, TM red Neck exam: Normal Neck: Positive: Supple, Nontender, No Lymphadenopathy Respiratory Exam: Normal Respiratory: Positive: Lungs clear, Normal breath sounds, No respiratory distress, No accessory muscle use Abdominal Exam: Normal Respiratory Course/Dx - Course Course Of Treatment: This is likely a viral URI and I will treat her symptomatically. - Differential Dx/Diagnosis Provider Diagnosis: URI (upper respiratory infection) Discharge - Sign-Out/Discharge Documenting (check all that apply): Patient Departure All imaging exams completed and their final reports reviewed: No Studies - Discharge Plan Condition: Stable Disposition: HOME Patient Education Materials: Upper Respiratory Infection (ED) Referrals: No Primary Care Phys,NOPCP [Primary Care Provider] - - Billing Disposition and Condition Condition: STABLE Disposition: Home
== END 2019-03-30 21:04 | disposition home or self-care (01) ==
LOC: UCEAST 18:30
DX: J06.9 Acute upper respiratory infection, unspecified (principal); H92.03 Otalgia, bilateral; J45.909 Unspecified asthma, uncomplicated; H73.90 Unspecified disorder of tympanic membrane, unspecified ear; Z88.1 Allergy status to other antibiotic agents; Z88.8 Allergy status to other drugs, medicaments and biological substances; Z88.0 Allergy status to penicillin
CPT/HCPCS: 87651; 99212; G0463

== ENCOUNTER 2019-05-13 | Emergency (ER) | payer BC, OTHER ==
[2019-05-13 04:55] LABS: ABS Basophils 0.1 10^3/ul (0-0.2); ABS Eosinophils 0.1 10^3/ul (0-0.6); ABS Lymphocytes 2.7 10^3/ul (1.0-4.8); ABS Monocytes 0.7 10^3/ul (0-0.8); ABS Neutrophils 4.9 10^3/ul (1.5-7.7); Eosinophil % 1.3 %; Hematocrit 42 % (35-47); Hemoglobin 14.6 g/dL (12.0-16.0); Mean Corpuscular HGB Conc 35 g/dL (31-36); Mean Corpuscular Hemoglobin 29 pg (27-31); Mean Corpuscular Volume 83 fL (80-97); Mean Platelet Volume 7.6 fL (7.4-10.4); Platelet Count 299 10^3/uL (150-450); Red Blood Count 4.99 10^6 /uL (3.70-4.87); Red Cell Distribution Width 13 % (10-15); White Blood Count 8.4 10^3/uL (3.5-10.8)
[2019-05-13 05:11] LABS: ALT 27 U/L (7-52); AST 17 U/L (13-39); Albumin 4.1 g/dL (3.2-5.2); Albumin/Globulin Ratio 1.4 (1-3); Alkaline Phosphatase 72 U/L (34-104); Anion Gap 5 mmol/L (2-11); BUN/Creatinine Ratio 18.2 (8-20); Blood Urea Nitrogen 14 mg/dL (6-24); C Reactive Protein 9.98 mg/L (<8.01); CO2 Carbon Dioxide 25 mmol/L (22-32); Calcium 9.5 mg/dL (8.6-10.3); Chloride 104 mmol/L (101-111); EGFR African American 115.6 (>60); EGFR Non-African American 95.6 (>60); Globulin 2.9 g/dL (2-4); Glucose 103 mg/dL (70-100); Potassium 4.1 mmol/L (3.5-5.0); Sodium 134 mmol/L (135-145); Uric Acid 5.8 mg/dL (2.3-6.6)
[2019-05-13 05:18] LABS: Rheumatoid Factor < 10 IU/mL (<15)
--- NOTE | 2019-05-13 05:22 | ED ---
Lower Extremity - HPI Summary HPI Summary: Patient is a 18 F who presents to [facility] with chief complaints of constant ankle and left foot pain with onset of 3 weeks that originally was intermittent prior to 3 weeks ago. Patient reports edema in distal part of left leg a week ago which resolved leaving a constant ankle edema. Patient reports that she feels pain where she has edema at bottom of left ankle that makes it hard to walk. Patient reports that she received an MRI, X-ray, and US ordered by her PCP who found that all the results were negative. Patient reports that she was trying to see an orthopedic surgeon but she could not get an appointment for at least another month. Patient reports that her ankle edema is constant despite taking ibuprofen, elevating it, and putting ice and a pressure wrap on it. Aggravating factors include bending, palpation, and walking. - History of Current Complaint Chief Complaint: EDExtremityLower Stated Complaint: L FOOT SWELLING PER PT Time Seen by Provider: 05/13/19 01:40 Hx Obtained From: Patient Hx Last Menstrual Period: 5 weeks ago Mechanism Of Injury: Unknown Onset of Pain: Days Onset/Duration: Weeks - 3 Severity Initially: Moderate Severity Currently: Severe Pain Intensity: 7 Pain Scale Used: 0-10 Numeric Timing: Constant Location: Is Discrete @ - left ankle Character Of Pain: Aching Associated Signs And Symptoms: Positive: Swelling Aggravating Factor(s): Ambulation - walking, Other - palpation, bending over Alleviating Factor(s): Nothing Able to Bear Weight: Yes - Allergies/Home Medications Allergies/Adverse Reactions: Allergies Allergy/AdvReac Type Severity Reaction Status Date / Time bacitracin [From Cortisporin] Allergy Swelling Verified 05/13/19 00:09 hydrocortisone Allergy Swelling Verified 05/13/19 00:09 [From Cortisporin] neomycin [From Cortisporin] Allergy Swelling Verified 05/13/19 00:09 Penicillins Allergy Hives/Diff. Verified 05/13/19 00:09 Breathing/I tching polymyxin B Allergy Swelling Verified 05/13/19 00:09 [From Cortisporin] raspberry Allergy Hives Verified 05/13/19 00:09 PEANUT BUTTER Allergy Severe THROAT Uncoded 05/13/19 00:09 SWELLS AND HIVES Home Medications: Home Medications Ibuprofen TAB* [Motrin TAB* 600 MG] 600 mg PO Q10H PRN 05/13/19 [History Confirmed 05/13/19] PMH/Surg Hx/FS Hx/Imm Hx Previously Healthy: No Endocrine/Hematology History: Reports: Hx Anemia - r/t menstral cycle Denies: Hx Diabetes, Hx Thyroid Disease Cardiovascular History: Denies: Hx Hypertension, Hx Pacemaker/ICD, Other Cardiovascular Problems/ Disorders Respiratory History: Reports: Hx Asthma Denies: Hx Chronic Obstructive Pulmonary Disease (COPD), Other Respiratory Problems/Disorders GI History: Denies: Hx Ulcer, Other GI Disorders History: Denies: Hx Dialysis, Hx Renal Disease Musculoskeletal History: Denies: Other Musculoskeletal History Sensory History: Denies: Hx Contacts or Glasses, Hx Hearing Aid Opthamlomology History: Denies: Hx Contacts or Glasses Neurological History: Reports: Hx Seizures - as a child, last 14 yrs ago Denies: Other Neuro Impairments/Disorders Psychiatric History: Reports: Hx Anxiety - no meds Denies: Hx Panic Disorder - Surgical History Surgery Procedure, Year, and Place: D & C 2017 Hx Anesthesia Reactions: No Infectious Disease History: No Infectious Disease History: Denies: Hx Clostridium Difficile, Hx Hepatitis, Hx Human Immunodeficiency Virus (HIV), Hx of Known/Suspected MRSA, Hx Shingles, Hx Tuberculosis, Hx Known/ Suspected VRE, Hx Known/Suspected VRSA, History Other Infectious Disease, Traveled Outside the [place] in Last 30 Days - Family History Known Family History: Positive: Hypertension, Diabetes, Other Negative: Cardiac Disease - Social History Alcohol Use: None Substance Use Type: Reports: None Smoking Status (MU): Never Smoked Tobacco Review of Systems Negative: Fever Positive: Edema - left ankle and foot All Other Systems Reviewed And Are Negative: Yes Physical Exam - Summary Physical Exam Summary: Constitutional: Well-developed, Well-nourished, Alert. (-) Distressed Skin: Warm, Dry HENT: Normocephalic; Atraumatic Eyes: Conjunctiva normal Neck: Musculoskeletal ROM normal neck. (-) JVD, (-) Stridor, (-) Tracheal deviation Cardio: Rhythm regular, rate normal, Heart sounds normal; Intact distal pulses; The pedal pulses are 2+ and symmetric. Radial pulses are 2+ and symmetric. (-) Murmur Pulmonary/Chest wall: Effort normal. (-) Respiratory distress, (-) Wheezes, (-) Rales Abd: Soft, (-) tenderness, (-) Distension, (-) Guarding, (-) Rebound Musculoskeletal: Left ankle and foot non pitting edema, neurovascularly intact, no proximal tenderness or erythema Lymph: (-) Cervical adenopathy Neuro: Alert, Oriented x3 Psych: Mood and affect Normal Triage Information Reviewed: Yes Vital Signs On Initial Exam: Initial Vitals Temp Pulse Resp BP Pulse Ox 98.5 F 90 16 154/87 100 05/13/19 00:05 05/13/19 00:05 05/13/19 00:05 05/13/19 00:05 05/13/19 00:05 Vital Signs Reviewed: Yes Diagnostics - Vital Signs Vital Signs Temp Pulse Resp BP Pulse Ox 05/13/19 04:43 98.4 F 88 16 151/85 98 05/13/19 00:05 98.5 F 90 16 154/87 100 - Laboratory Lab Results: Lab Results 05/13/19 05/13/19 Range/Units 04:47 04:47 WBC 8.4 (3.5-10.8) 10^3/uL RBC 4.99 H (3.70-4.87) 10^6 /uL Hgb 14.6 (12.0-16.0) g/dL Hct 42 (35-47) % MCV 83 (80-97) fL MCH 29 (27-31) pg MCHC 35 (31-36) g/dL RDW 13 (10-15) % Plt Count 299 (150-450) 10^3/uL MPV 7.6 (7.4-10.4) fL Neut % (Auto) 57.8 % Lymph % (Auto) 32.0 % Cowley % (Auto) 8.2 % Eos % (Auto) 1.3 % Baso % (Auto) 0.7 % Absolute Neuts (auto) 4.9 (1.5-7.7) 10^3/ul Absolute Lymphs (auto) 2.7 (1.0-4.8) 10^3/ul Absolute Monos (auto) 0.7 (0-0.8) 10^3/ul Absolute Eos (auto) 0.1 (0-0.6) 10^3/ul Absolute Basos (auto) 0.1 (0-0.2) 10^3/ul Absolute Nucleated RBC 0.0 10^3/ul Nucleated RBC % 0.0 ESR Pending Sodium 134 L (135-145) mmol/L Potassium 4.1 (3.5-5.0) mmol/L Chloride 104 (101-111) mmol/L Carbon Dioxide 25 (22-32) mmol/L Anion Gap 5 (2-11) mmol/L BUN 14 (6-24) mg/dL Creatinine 0.77 (0.51-0.95) mg/dL Est GFR ( Amer) 115.6 (>60) Est GFR (Non-Af Amer) 95.6 (>60) BUN/Creatinine Ratio 18.2 (8-20) Glucose 103 H (70-100) mg/dL Uric Acid 5.8 (2.3-6.6) mg/dL Calcium 9.5 (8.6-10.3) mg/dL Total Bilirubin 0.50 (0.2-1.0) mg/dL AST 17 (13-39) U/L ALT 27 (7-52) U/L Alkaline Phosphatase 72 (34-104) U/L C-Reactive Protein 9.98 H (<8.01) mg/L Total Protein 7.0 (6.4-8.9) g/dL Albumin 4.1 (3.2-5.2) g/dL Globulin 2.9 (2-4) g/dL Albumin/Globulin Ratio 1.4 (1-3) Rheumatoid Factor < 10 (<15) IU/mL Result Diagrams: 05/13/19 04:47 05/13/19 04:47 Lab Statement: Any lab studies that have been ordered have been reviewed, and results considered in the medical decision making process. Re-Evaluation - Re-Evaluation First Eval Re-Evaluation Time: 05:20 Comment: I discussed blood work with the patient. We discussed discharge with follow up with orthopedics. Lower Extremity Course/Dx - Course Course Of Treatment: Patient is a 18 F who presents to [facility] with chief complaints of constant ankle and left foot pain with onset of 3 weeks that originally was intermittent prior to 3 weeks ago. Patient reports edema in distal part of left leg a week ago which resolved leaving a constant ankle edema. Physical exam findings reveal left ankle and foot non pitting edema, neurovascularly intact, no proximal tenderness or erythema. Blood work reveals that RBC is 4.99, Sodium is 134, Glucose is 103, and C-reactive Protein is 9.98. No medications were administered. Since patient has already had US, MRI, and XR of the ankle with negative results, and now blood work is also negative, I believe that orthopedic intervention is needed at this time. She will be referred to orthopedics to get an appointment sooner than previously schedueled. She is diagnosed with LLE edema. She agrees with this plan. - Diagnoses Provider Diagnoses: Lower extremity edema Discharge - Sign-Out/Discharge Documenting (check all that apply): Patient Departure - Patient will be discharged home. Patient Received Moderate/Deep Sedation with Procedure: No - Discharge Plan Condition: Stable Disposition: HOME Patient Education Materials: Leg Edema (ED) Print Language: KHMER Referrals: José Miguel Ford MD [Medical Doctor] - Rashmi Melgoza MD [Primary Care Provider] - - Billing Disposition and Condition Condition: STABLE Disposition: Home - Attestation Statements Document Initiated by Christie: Yes Documenting Scribe: Amanda Toussaint Provider For Whom Christie is Documenting (Include Credential): Violeta Flowers MD Scribe Attestation: Amanda Steel, scribed for Violeta Rao MD on 05/13/19 at 0933. Scribe Documentation Reviewed: Yes Provider Attestation: The documentation as recorded by the Amanda parikh accurately reflects the service I personally performed and the decisions made by me, Violeta Rao MD Status of Scribe Document: Viewed
[2019-05-13 05:53] VITALS: BP 148/79
[2019-05-13 06:19] LABS: Erythrocyte Sed Rate 28 mm/Hr (0-19)
== END 2019-05-13 05:51 | disposition home or self-care (01) ==
LOC: ED
DX: R60.0 Localized edema (principal); M79.672 Pain in left foot; Z88.0 Allergy status to penicillin; M25.572 Pain in left ankle and joints of left foot
CPT/HCPCS: 36415; 80053; 84550; 85025; 85652; 86038; 86140; 86431; 99282

== ENCOUNTER 2019-06-09 00:01 | Emergency (ER) | payer OTHER, BC ==
[2019-06-09] MEDS ORDERED: DOXYcycline CAP(*) 100 MG PO ONE (00:42)
--- NOTE | 2019-06-09 00:44 | ED ---
Lower Extremity - HPI Summary HPI Summary: This pt is a 18 y/o female [facility] [place]/o left foot pain and swelling x1 month, worsening since this week. She reports she saw orthopedist, Dr. Talamantes, about 3 weeks ago. She was referred to vascular, Dr. Mckeon, but notes it won't be until a month from now. Pt states that since 06/06/19 her swelling and redness started to extend up her leg. She additionally notes pain on her left foot and numbness on left toes. Pt spoke to Dr. Talamantes today and was advised to come to the ED but was unable to come earlier due to work. Pt has had US, XR, and MRI of her left foot with no acute findings. - History of Current Complaint Chief Complaint: EDExtremityLower Stated Complaint: SWELLING IN LEG,NUMBESS IN TOES PER PT Time Seen by Provider: 06/09/19 00:37 Hx Obtained From: Patient Hx Last Menstrual Period: 5 weeks ago Mechanism Of Injury: Other - no trauma Onset/Duration: Still Present Severity Currently: Moderate Pain Intensity: 5 Pain Scale Used: 0-10 Numeric Timing: Lasting Weeks Location: Radiates To - from left foot radiating up the leg Associated Signs And Symptoms: Positive: Swelling, Redness, Other - numbness on left toes. Negative: Fever Aggravating Factor(s): Nothing Alleviating Factor(s): Nothing Able to Bear Weight: Yes - Allergies/Home Medications Allergies/Adverse Reactions: Allergies Allergy/AdvReac Type Severity Reaction Status Date / Time Penicillins Allergy Hives/Diff. Verified 06/09/19 00:08 Breathing/I tching raspberry Allergy Hives Verified 06/09/19 00:08 PEANUT BUTTER Allergy Severe THROAT Uncoded 06/09/19 00:08 SWELLS AND HIVES PMH/Surg Hx/FS Hx/Imm Hx Endocrine/Hematology History: Reports: Hx Anemia - r/t menstral cycle Denies: Hx Diabetes, Hx Thyroid Disease Cardiovascular History: Denies: Hx Hypertension, Hx Pacemaker/ICD, Other Cardiovascular Problems/ Disorders Respiratory History: Reports: Hx Asthma Denies: Hx Chronic Obstructive Pulmonary Disease (COPD), Other Respiratory Problems/Disorders GI History: Denies: Hx Ulcer, Other GI Disorders History: Denies: Hx Dialysis, Hx Renal Disease Musculoskeletal History: Denies: Other Musculoskeletal History Sensory History: Denies: Hx Contacts or Glasses, Hx Hearing Aid Opthamlomology History: Denies: Hx Contacts or Glasses Neurological History: Reports: Hx Seizures - as a child, last 14 yrs ago Denies: Other Neuro Impairments/Disorders Psychiatric History: Reports: Hx Anxiety - no meds Denies: Hx Panic Disorder - Surgical History Surgery Procedure, Year, and Place: D & C 2017 Hx Anesthesia Reactions: No Infectious Disease History: No Infectious Disease History: Denies: Hx Clostridium Difficile, Hx Hepatitis, Hx Human Immunodeficiency Virus (HIV), Hx of Known/Suspected MRSA, Hx Shingles, Hx Tuberculosis, Hx Known/ Suspected VRE, Hx Known/Suspected VRSA, History Other Infectious Disease, Traveled Outside the [place] in Last 30 Days - Family History Known Family History: Positive: Hypertension, Diabetes, Other Negative: Cardiac Disease - Social History Alcohol Use: None Substance Use Type: Reports: None Smoking Status (MU): Never Smoked Tobacco Review of Systems Negative: Fever, Chills ENT: Negative Cardiovascular: Negative Musculoskeletal: Other - POSITIVE: left foot pain Positive: Edema - left foot Positive: Numbness - in left toes All Other Systems Reviewed And Are Negative: Yes Physical Exam - Summary Physical Exam Summary: Appearance: Well-appearing, Well-nourished, lying in bed comfortable Skin: Warm, dry, no obvious rash Eyes: sclera anicteric, no conjunctival pallor ENT: mucous membranes moist Neck: deferred Respiratory: No signs of respiratory distress Cardiovascular: Appears well perfused, pulses are nml Abdomen: deferred Musculoskeletal: Erythema and swelling of the entire left foot, a little bit of streaking past the ankle. Left foot is mildly warm. No fluctuance. Neurological: Awake and alert, mentation is normal, speech is fluent and appropriate Psychiatric: affect is normal, does not appear anxious or depressed Triage Information Reviewed: Yes Vital Signs On Initial Exam: Initial Vitals Temp Pulse Resp BP Pulse Ox 97.8 F 88 16 170/88 99 06/09/19 00:03 06/09/19 00:03 06/09/19 00:03 06/09/19 00:03 06/09/19 00:03 Vital Signs Reviewed: Yes Diagnostics - Vital Signs Vital Signs Temp Pulse Resp BP Pulse Ox 06/09/19 00:03 97.8 F 88 16 170/88 99 - Laboratory Lab Statement: Any lab studies that have been ordered have been reviewed, and results considered in the medical decision making process. Lower Extremity Course/Dx - Course Assessment/Plan: Pt is a 18 y/o female presenting to [facility] c/o left foot pain and swelling x1 month, worsening since this week. Pt states that since 06/06/19 her swelling and redness started to extend up her leg. She additionally notes pain on her left foot and numbness on left toes. Physical exam reveals erythema and swelling of the entire left foot, a little bit of streaking past the ankle. Left foot is mildly warm. No fluctuance. Pt will be discharged home with follow up from Dr. Talamantes, orthopedist. She was given a prescription for Doxycycline. - Diagnoses Provider Diagnoses: Cellulitis of left foot Discharge - Sign-Out/Discharge Documenting (check all that apply): Patient Departure Patient Received Moderate/Deep Sedation with Procedure: No - Discharge Plan Condition: Good Disposition: HOME Prescriptions: DOXYcycline CAP(*) [DOXYcycline 100MG CAP(*)] 100 mg PO BID #20 cap Patient Education Materials: Cellulitis (ED) Referrals: Stanley Talamantes MD [Medical Doctor] - 1 Day - Billing Disposition and Condition Condition: GOOD Disposition: Home - Attestation Statements Document Initiated by Scribe: Yes Documenting Scribe: Brie Choi Provider For Whom Christie is Documenting (Include Credential): Hector Jensen MD Scribe Attestation: Brie Steel, scribed for Hector Jensen MD on 06/10/19 at 0612. Scribe Documentation Reviewed: Yes Provider Attestation: The documentation as recorded by the Brie parikh accurately reflects the service I personally performed and the decisions made by me, Hector Jensen MD Status of Scribe Document: Viewed
[2019-06-09 01:03] VITALS: BP 148/93
== END 2019-06-09 01:02 | disposition home or self-care (01) ==
LOC: ED 00:01
DX: L03.116 Cellulitis of left lower limb (principal); Z88.0 Allergy status to penicillin
CPT/HCPCS: 99282; A9270-GY

== ENCOUNTER 2019-11-08 21:32 | Emergency (ER) | payer BC ==
--- OUTSIDE RECORDS SUMMARY | 2019-11-08 21:48 | XMS REPORT | Summary of Care ---
:2000 Author Organization [facility] Address [address] [place] [address] Care Team Providers Name Role Phone Rashmi Melgoza MD Primary Care Provider Reason for Visit Reason Comments New Patient Encounter Details Date Type Department Care Team Description 09/22/2019 Office Visit [facility], C, CERTIFIED SURGICAL TECH/FIRST ASSISTANT left lower extremity Department of Surgery, [facility] (Primary Dx) Division of Vascular [address] [place] [address] Endovascular Services [phone] [place] [address] Allergies Active Allergy Reactions Severity Noted Date Comments Penicillins 07/19/2019 documented as of this encounter (statuses as of 09/22/2019) Medications Medication Sig Dispensed Refills Start End Date Status Date aspirin 81 MG tablet Take 81 mg 0 Active by mouth daily medroxyPROGESTERone Inject 150 0 09/22/20 Discontinued (DEPO-PROVERA) 150 MG/ML mg into 19 (Therapy injection the muscle completed) every 3 (three) months documented as of this encounter (statuses as of 09/22/2019) Active Problems No known active problemsdocumented as of this encounter (statuses as of 2018) Social History Tobacco Use Types Packs/Day Years Used Date Never Smoker 0 Smokeless Tobacco: Never Used Alcohol Use Drinks/Week oz/Week Comments Never Alcohol Habits Answer Date Recorded How often do you have a drink containing alcohol? Never 09/22/2019 How many drinks containing alcohol do you have on a typical Not asked day when you are drinking? How often do you have six or more drinks on one occasion? Not asked Sex Assigned at Date Recorded Not on file Job Start Date Occupation Industry Not on file Not on file Not on file Travel History Travel Start Travel End No recent travel history available. documented as of this encounter Last Filed Vital Signs Vital Sign Reading Time Taken Comments Blood Pressure 119/80 09/22/2019 9:59 AM EST Pulse 76 09/22/2019 9:59 AM EST Temperature 36.9 09/22/2019 9:59 AM EST C (98.4 F) Respiratory Rate 20 09/22/2019 9:59 AM EST Oxygen Saturation 97% 09/22/2019 9:59 AM EST Inhaled Oxygen Concentration - - Weight 102.5 kg (226 lb) 09/22/2019 9:59 AM EST Height 165.1 cm (5' 5") 09/22/2019 9:59 AM EST Body Mass Index 37.61 09/22/2019 9:59 AM EST documented in this encounter Progress Notes Leeanne Rice, CERTIFIED SURGICAL TECH/FIRST ASSISTANT - 09/22/2019 9:30 AM EST Reason for Referral: LLE swelling HPI: Kristie Ayala is a 19 y.o. female who was referred to Vascular Surgery by her Orthopedic doctor, Dr.Alec Ojeda for evaluation of her left lower extremity swelling per the patients request. She has past medical history significant for anemia, asthma, low blood pressure and paroxsymal tachycardia. She has noticed the left leg swelling for 2 years. So much so that she cannot put her shoe on. She thought it was related to a stress fracture she sustained a few years ago however its gotten worse over time. She does wear knee high compression stockings daily and states it doesn't help. States she wore an orthopedic boot for many weeks with no help. She was in the ER on 3 different occassions for this concern on May, June and July 2019 stating that he toe turned a purple color. She states theysaid she had pulses and states that an US was performed and was negative for a DVT so they sent her home. She states this resolved shortly after. We do not have have a copy of these records. She statesvlad does have a history of DVT in the family. The only medication she takes is ASA 81mg. She has nottaken the depo injection in about a year. She has no tissue loss of the bilateral lower extremities.She does have muscle spasms that occur twice per week in the left leg. 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 She states there is no chance she could be as she had a blood test last week. States she has been trying to get and cant. Had abnormal weight gain over the course of a year from 120lbs to 220lbs. She denies any pain at rest. 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 Past Medical History: Diagnosis Date Anemia Asthma Left foot pain Localized superficial swelling of skin Localized swelling of lower extremity Low blood pressure Paroxysmal tachycardia Past Surgical History: Procedure Laterality Date DILATION AND CURETTAGE, DIAGNOSTIC / THERAPEUTIC 04/2017 Family History Problem Relation Age of Onset Hypertension Mother Hyperlipidemia Father Blood Clots Maternal Grandfather Blood Clots Paternal Grandfather Social History Tobacco Use Smoking status: Never Smoker Smokeless tobacco: Never Used Substance Use Topics Alcohol use: Never Frequency: Never Drug use: Never ALLERGIES: Allergies Allergen Reactions Penicillins HOME MEDICATIONS: Prior to Admission medications Medication Sig Start Date End Date Taking? Authorizing Provider aspirin 81 MG tablet Take 81 mg by mouth daily Historical Provider, medroxyPROGESTERone (DEPO-PROVERA) 150 MG/ML injection Inject 150 mg into the muscle every 3 (three)months Historical Provider, ROS: Constitutional: Reports rapid weight gain. Denies fever, chills, fatigue. HEENT: Denies visual difficulties, hearing is good Respiratory: Denies cough, shortness of breath, wheezing, chronic cough or sputum production, no hemoptysis Cardiovascular: Denies chest pain or pressure, palpitations, or leg swelling Gastrointestinal: Denies nausea, vomiting, abdominal pain, diarrhea, constipation or blood in the stool Genitourinary: Denies dysuria, urgency, frequency, hematuria, and difficulty urinating Skin: Denies rashes or lesions Extremities/Musculoskeletal: Reports swelling of the LLE with associated muscle cramps. Denies muscle weakness, numbness, or back pain Neurological: Denies dizziness, seizures, difficulty with speech, weakness, or numbness. Negative for TIA or CVA Hematological: Denies bruising easily or anemia Vascular: Denies varicose veins Vitals: Vitals: 09/22/19 0959 BP: 119/80 Pulse: 76 Resp: (!) 20 Temp: 36.9 C (98.4 F) SpO2: 97% Physical Exam: General appearance: Alert, appears stated age, cooperative and no distress, ambulated independently into exam room Head: Normocephalic, without obvious abnormality, atraumatic Eyes: Negative findings: conjunctivae and sclerae normal Lungs: Respirations unlabored on room air. Lungs CTA bilaterally. Cardiac: Normal rate and rhythm. Normal S1, S2. No murmurs. No carotid bruits auscultated. Extremities: Moderate edema of the LLE. Bilateral feet are warm with no cyanosis or rubor. No tissueloss. Motor and sensory function intact. Pulses: Triphasic DP, PT of the LLE. Palpable DP, PT of the RLE. Unable to palpate the popliteal andfemoral pulses bilaterally due to body habitus. Skin: Skin color, texture, turgor normal. No rashes. No varicosities. Neuro: Alert and oriented x3. Speech clear and appropriate. Mood and Affect: Pleasant and appropriate Imaging and other diagnostics: None at this time Assessment: 1. Pain and swelling of left lower extremity Plan: Kristie Ayala is a 19 y.o. female who was referred to Vascular Surgery by her orthopedic doctor withconcerns of LLE swelling. She has been worked up multiple times for this complaint in the ER and also for a purple toe. She has been wearing knee high compression with no relief in swelling. She is notcurrently taking the Depo shot and has a family history of a DVT. She does have triphasic pulses in the left foot however I am unable to feel her femoral pulses likely due to her body habitus. I will get a venous duplex to rule out DVT as she has a family history and check for venous insufficiency. She states she did have a venogram done when was in the ER to rule out May Thurners Syndrome. We will try to retreive those records. I will see her back after she has these tests completed. In the mean time I instructed her to purchase thigh high compression 20-30mmhg to be worn daily. She is agreeable to this plan. She was instructed to call us if any issues arise in that time. Plan was discussed with Dr. Bello. OLGA Brown Date: September 22, 2019 Time: 12:32 PM 12: 35 PM ESTdocumented in this encounter Plan of Treatment Date Type Specialty Care Team Description 10/27/2019 Office Visit Vascular Surgery Leeanne Rice NP [address] [place] [address] [phone] Health Maintenance Due Date Last Done Comments MMR Vaccines (1 of 1 - Standard 1999 series) DTaP,Tdap,and Td Vaccines (1 - 2005 Tdap) HIV Screening 2011 Varicella Vaccines (1 of 2 - 13+ 2011 2-dose series) HPV Vaccines (1 - Female 3-dose 2013 series) Cervical Cancer Screening 3 years 2019 Influenza Vaccine 08/08/2019 Pneumococcal Vaccine: 65+ Years (1 2063 of 2 - PCV13) HIB Vaccines Aged Out No longer eligible based on patient's age to complete this topic Hepatitis A Vaccines Aged Out No longer eligible based on patient's age to complete this topic Hepatitis B Vaccines Aged Out No longer eligible based on patient's age to complete this topic IPV Vaccines Aged Out No longer eligible based on patient's age to complete this topic Pneumococcal Vaccine: Pediatrics Aged Out No longer eligible based on (0 to 5 Years) and At-Risk patient's age to complete this Patients (6 to 64 Years) topic documented as of this encounter Results Not on filedocumented in this encounter Visit Diagnoses Diagnosis Pain and swelling of left lower extremity - Primary documented in this encounter
--- OUTSIDE RECORDS SUMMARY | 2019-11-08 21:48 | XMS REPORT | Continuity of Care Document ---
:2000 External Reference #:[id number] Author Name John Bustillos MD Address [address] [place] [id number] Problems Description No Information Available Social History Type Date Description Comments Sex Unknown Allergies, Adverse Reactions, Alerts Active Allergies Reaction Severity Comments Date PCN rash 07/14/2019 Medications Description No Active Medications Immunizations CPT Code Status Date Vaccine Lot # [id number] Given 08/17/2017 Flu < 65 years 21134 Given 05/01/2010 HPV Gardasil 9 10398 Given 07/11/2009 Tdap - Boostrix/Adacel 35548 Given 07/11/2009 Tdap - Boostrix/Adacel 02997 Given 07/11/2009 Tdap - Boostrix/Adacel 62739 Given 07/11/2009 HPV Gardasil 9 18267 Given 06/15/2008 Hep A Adult for >18 yrs Havrix/Vaqta 80198 Given 06/10/2007 Varicella (Chicken Pox) Vaccine 31517 Given 06/10/2007 Hep A Adult for >18 yrs Havrix/Vaqta 62246 Given 09/08/1999 Varicella (Chicken Pox) Vaccine 57808 Given 03/11/1999 Hep B 11-15yr, Recombivax 1.0ml dose only 19983 Given 1998 Hep B 11-15yr, Recombivax 1.0ml dose only 36183 Given 1998 Hep B 11-15yr, Recombivax 1.0ml dose only Vital Signs Date Vital Result Comment 10/27/2019 3:36pm BP Systolic 128 mmHg BP Diastolic 80 mmHg Height 63.25 inches 5'3.25" Weight 230.00 lb Heart Rate 95 /min Body Temperature 98.3 F O2 % BldC Oximetry 98 % BMI (Body Mass Index) 40.4 kg/m2 04/19/2019 9:09am BP Systolic 122 mmHg Height 64.00 inches 5'4.00" Weight 223.00 lb Heart Rate 84 /min Body Temperature 97.4 F O2 % BldC Oximetry 97 % BMI (Body Mass Index) 38.28 kg/m2 Results Test Acquired Date Facility Test Result H/L Range Note Laboratory test 10/27/2019 [facility] CFM Rapid negative finding ( )- - Strep A Laboratory test 09/05/2019 [facility] HCG < 0.60 mIU/ mL [address] [place] [address] [phone] 1 <5.0 Negative 5.0 - 25.0 Indeterminate (Repeat testing recommended after 72 hours) >25.0 Positive Perimenopausal women can display HCG levels of up to 20 mIU/mL Procedures Date Code Description Status 10/27/2019 25247 Brief Emotional/Behav Assessment W/ Scoring Doc Per Completed Standard Inst 10/27/2019 30638 Remove Impact Cerumen Irrigati Completed Medical Devices Description No Information Available Encounters Type Date Location Provider Dx Diagnosis Office Visit 10/27/2019 3:30p [facility] John Bustillos MD J02.9 Acute pharyngitis, unspecified H65.02 Acute serous otitis media, left ear Assessments Date Code Description Provider 10/27/2019 J02.9 Acute pharyngitis, unspecified John Bustillos MD 10/27/2019 H65.02 Acute serous otitis media, left ear John Bustillos MD Plan of Treatment 10/27/2019 - John Bustillos MDJ02.9 Acute pharyngitis, [id number] Acute serous otitis media, left earAllNew Medication:No Active Medications - Functional Status Description No Information Available Mental Status Description No Information Available Referrals Description No Information Available
[2019-11-08] MEDS ORDERED: A lbuterol Hfa (PREPAK) 1 MDI - ED TAKE HOME DISPENSING ONLY INHH ONE (21:54)
--- NOTE | 2019-11-08 22:02 | ED ---
Influenza-Like Illness - HPI Summary HPI Summary: 19 year old female presents with flulike illness the past 2 days. 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 she had a fever yesterday. Has been having cough. admits to post nasal drip. She's been achy all over. Does have a history asthma. She does not currently have an an inhaler and she needs one. She denies any chest pain or shortness of breath. She admits occasional sore throat. no abdominal pain. no n/v. - History of Current Complaint Chief Complaint: EDFluSymptoms Time Seen by Provider: 11/08/19 21:41 - Allergy/Home Medications Allergies/Adverse Reactions: Allergies Allergy/AdvReac Type Severity Reaction Status Date / Time Penicillins Allergy Hives/Diff. Verified 11/08/19 21:37 Breathing/I tching raspberry Allergy Hives Verified 11/08/19 21:37 PEANUT BUTTER Allergy Severe THROAT Uncoded 11/08/19 21:37 SWELLS AND HIVES Home Medications: Home Medications Ibuprofen TAB* [Advil TAB*] 200 mg PO ONCE PRN 11/08/19 [History Confirmed 11/08] PMH/Surg Hx/FS Hx/Imm Hx Endocrine/Hematology History: Reports: Hx Anemia - r/t menstral cycle Denies: Hx Diabetes, Hx Thyroid Disease Cardiovascular History: Denies: Hx Hypertension, Hx Pacemaker/ICD, Other Cardiovascular Problems/ Disorders Respiratory History: Reports: Hx Asthma Denies: Hx Chronic Obstructive Pulmonary Disease (COPD), Other Respiratory Problems/Disorders GI History: Denies: Hx Ulcer, Other GI Disorders History: Denies: Hx Dialysis, Hx Renal Disease Musculoskeletal History: Denies: Other Musculoskeletal History Sensory History: Denies: Hx Contacts or Glasses, Hx Hearing Aid Opthamlomology History: Denies: Hx Contacts or Glasses Neurological History: Reports: Hx Seizures - as a child, last 14 yrs ago Denies: Other Neuro Impairments/Disorders Psychiatric History: Reports: Hx Anxiety - no meds Denies: Hx Panic Disorder - Surgical History Surgery Procedure, Year, and Place: D & C 2017 Hx Anesthesia Reactions: No Infectious Disease History: No Infectious Disease History: Denies: Hx Clostridium Difficile, Hx Hepatitis, Hx Human Immunodeficiency Virus (HIV), Hx of Known/Suspected MRSA, Hx Shingles, Hx Tuberculosis, Hx Known/ Suspected VRE, Hx Known/Suspected VRSA, History Other Infectious Disease, Traveled Outside the [place] in Last 30 Days - Family History Known Family History: Positive: Hypertension, Diabetes, Other Negative: Cardiac Disease - Social History Alcohol Use: None Substance Use Type: Reports: None Smoking Status (MU): Never Smoked Tobacco Review of Systems Positive: Fever Positive: Nasal Discharge Negative: Chest Pain Positive: Cough. Negative: Shortness Of Breath Negative: Abdominal Pain All Other Systems Reviewed And Are Negative: Yes Physical Exam Triage Information Reviewed: Yes Vital Signs On Initial Exam: Initial Vitals Temp Pulse Resp BP Pulse Ox 97.4 F 102 16 135/96 97 11/08/19 21:33 11/08/19 21:33 11/08/19 21:33 11/08/19 21:33 11/08/19 21:33 Vital Signs Reviewed: Yes Appearance: Positive: Well-Appearing Skin: Positive: Warm, Dry Head/Face: Positive: Normal Head/Face Inspection Eyes: Positive: Normal, EOMI, IVELISSE, Conjunctiva Clear ENT: Positive: Normal ENT inspection, Pharynx normal, TMs normal Neck: Positive: Supple, Nontender, No Lymphadenopathy. Negative: Nuchal Rigidity Respiratory/Lung Sounds: Positive: Clear to Auscultation, Breath Sounds Present Cardiovascular: Positive: Normal, RRR Abdomen Description: Positive: Nontender, Soft Bowel Sounds: Positive: Present Musculoskeletal: Positive: Normal Neurological: Positive: Normal Psychiatric: Positive: Normal Procedures - Sedation Patient Received Moderate/Deep Sedation with Procedure: No Diagnostics - Vital Signs Vital Signs Temp Pulse Resp BP Pulse Ox 11/08/19 21:33 97.4 F 102 16 135/96 97 - Laboratory Lab Statement: Any lab studies that have been ordered have been reviewed, and results considered in the medical decision making process. Flu Symptom Course/Dx - Course Course Of Treatment: 19 year old female presents with flulike illness the past 2 days. 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 she had a fever yesterday. Has been having cough. admits to post nasal drip. She's been achy all over. Does have a history asthma. She does not currently have an an inhaler and she needs one. She denies any chest pain or shortness of breath. She admits occasional sore throat. no abdominal pain. no n/v. On exam lungs clear auscultation. Pharynx normal. Flu is positive. will give tamiflu. patient understand and agrees with plan. - Diagnoses Differential Diagnosis/HQI/PQRI: Positive: Bronchitis, Influenza, Upper Respiratory Infection Provider Diagnoses: Influenza Discharge ED - Sign-Out/Discharge Documenting (check all that apply): Patient Departure - Discharge Plan Condition: Good Disposition: HOME Prescriptions: Oseltamivir CAP* [Tamiflu CAP*] 75 mg PO BID #9 cap Patient Education Materials: Influenza (ED) Forms: *Work Release Referrals: Rashmi Melgoza MD [Primary Care Provider] - Additional Instructions: Take Tamiflu twice for 5 days first dose given in ED Take Tylenol and ibuprofen for muscle aches and fever every 6 hours Saline rinse can be used multiple times a day for nasal congestion Drink plenty of fluids Follow up with primary within 5 days Return to ED if develop any new or worsening symptoms - Billing Disposition and Condition Condition: GOOD Disposition: Home
[2019-11-08 22:18] LABS: Influenza B Molecular POSITIVE (Negative)
[2019-11-08] MEDS ORDERED: Oseltamivir CAP* 75 MG CAP PO ONE (22:21)
[2019-11-08 22:34] VITALS: BP 122/90
== END 2019-11-08 22:33 | disposition home or self-care (01) ==
LOC: ED 21:32
DX: J11.1 Influenza due to unidentified influenza virus with other respiratory manifestations (principal)
CPT/HCPCS: 99282; A9270-GY

== ENCOUNTER 2021-01-18 19:20 | Inpatient (IN) ==
[2021-01-18] MEDS: Metoclopramide 5 MG/ML VIAL (10 mg) IV SLOW PU PRN (20:54)
[2021-01-18] MEDS ORDERED: D5LR 1000 ml BAG 1,000 ML IV SCH (21:00)
[2021-01-18] MEDS ORDERED: Lactated Ringers 1000 ml BAG 1,000 ML IV SCH (21:00)
[2021-01-18] MEDS ORDERED: NS 0.9% 1000 ml BAG 1,000 ML IV SCH (21:15)
[2021-01-18] MEDS: cefTRIAXone 1 gm/50 mL NS BAG 1 GM/50 ML BAG IVPB SCH (21:59)
[2021-01-18] MEDS ORDERED: D5W 1000 ml BAG 1,000 ML IV SCH (22:00)
[2021-01-19] MEDS: Promethazine INJ(RESTRICTED) 25 MG/ML 1 ml VIAL IV PRN ×4 (00:35→19:35)
[2021-01-19 00:45] LABS: Urine Benzodiazepine Screen None Detected (None Detect); Urine Cannabinoids Screen None Detected (None Detect); Urine Opiates Screen None Detected (None Detect)
[2021-01-19 08:44] LABS: ABS Lymphocytes 0.7 10^3/ul (1.0-4.8); ABS Monocytes 0.9 10^3/ul (0-0.8); ABS Neutrophils 8.4 10^3/ul (1.5-7.7); Eosinophil % 0.2 %; Hematocrit 31 % (35-47); Hemoglobin 11.1 g/dL (12.0-16.0); Lymphocyte % 6.9 %; Mean Corpuscular HGB Conc 36 g/dL (31-36); Mean Corpuscular Hemoglobin 31 pg (27-31); Mean Corpuscular Volume 87 fL (80-97); Mean Platelet Volume 7.3 fL (7.4-10.4); Platelet Count 228 10^3/uL (150-450); Red Blood Count 3.61 10^6 /uL (3.70-4.87); Red Cell Distribution Width 14 % (10-15); White Blood Count 10.1 10^3/uL (3.5-10.8)
[2021-01-19 09:06] LABS: BUN/Creatinine Ratio 12.5 (8-20); Calcium 8.4 mg/dL (8.6-10.3); EGFR African American 195.7 (>60); EGFR Non-African American 161.7 (>60); Potassium 3.5 mmol/L (3.5-5.0)
[2021-01-19] MEDS: Lactated Ringers 1000 ml BAG 1,000 ML IV SCH ×2 (10:29→17:32)
[2021-01-19] MEDS: Metoclopramide 5 MG/ML VIAL (10 mg) IV SLOW PU PRN ×3 (10:41→22:56)
[2021-01-19] MEDS: cefTRIAXone 1 gm/50 mL NS BAG 1 GM/50 ML BAG IVPB SCH (21:03)
[2021-01-20] MEDS: Lactated Ringers 1000 ml BAG 1,000 ML IV SCH ×4 (00:31→23:30)
[2021-01-20] MEDS: Promethazine INJ(RESTRICTED) 25 MG/ML 1 ml VIAL IV PRN ×4 (01:46→20:20)
[2021-01-20] MEDS: Metoclopramide 5 MG/ML VIAL (10 mg) IV SLOW PU PRN ×4 (05:10→23:21)
[2021-01-20 09:55] LABS: BUN/Creatinine Ratio 9.3 (8-20); Calcium 8.4 mg/dL (8.6-10.3); EGFR African American 222.2 (>60); EGFR Non-African American 183.6 (>60); Potassium 3.1 mmol/L (3.5-5.0)
[2021-01-20] MEDS ORDERED: Potassium Chlor 20 meq TAB.ER PO SCH (11:00)
[2021-01-20] MEDS: KCL 20 MEQ/100 ML IVPREMIX 20 MEQ/100 ML BAG IV SCH ×3 (12:01→16:29)
[2021-01-20] MEDS: cefTRIAXone 1 gm/50 mL NS BAG 1 GM/50 ML BAG IVPB SCH (21:10)
[2021-01-21] MEDS: Promethazine INJ(RESTRICTED) 25 MG/ML 1 ml VIAL IV PRN (02:30)
[2021-01-21] MEDS: Lactated Ringers 1000 ml BAG 1,000 ML IV SCH (05:25)
[2021-01-21] MEDS: Metoclopramide 5 MG/ML VIAL (10 mg) IV SLOW PU PRN (05:30)
[2021-01-21 06:33] LABS: ABS Lymphocytes 0.8 10^3/ul (1.0-4.8); ABS Monocytes 0.5 10^3/ul (0-0.8); ABS Neutrophils 3.7 10^3/ul (1.5-7.7); Eosinophil % 0.6 %; Hematocrit 29 % (35-47); Hemoglobin 10.2 g/dL (12.0-16.0); Lymphocyte % 16.7 %; Mean Corpuscular HGB Conc 36 g/dL (31-36); Mean Corpuscular Hemoglobin 31 pg (27-31); Mean Corpuscular Volume 86 fL (80-97); Mean Platelet Volume 7.4 fL (7.4-10.4); Platelet Count 238 10^3/uL (150-450); Red Blood Count 3.32 10^6 /uL (3.70-4.87); Red Cell Distribution Width 13 % (10-15); White Blood Count 5.1 10^3/uL (3.5-10.8)
[2021-01-21 06:59] LABS: BUN/Creatinine Ratio 7.5 (8-20); Calcium 8.3 mg/dL (8.6-10.3); EGFR African American 241.5 (>60); EGFR Non-African American 199.6 (>60); Potassium 3.2 mmol/L (3.5-5.0)
[2021-01-21 12:14] VITALS: BP 129/80
[2021-01-21] MEDS ORDERED: Nitrofurantoin (monohydrate/macrocrystals) 100 mg CAP PO SCH (16:00)
[2021-01-21] MEDS ORDERED: Nitrofurantoin (monohydrate/macrocrystals) 100 mg CAP PO ONE (21:00)
== END 2021-01-21 16:09 | disposition home or self-care (01) | DRG 720 ==
LOC: MCHOBOUT 19:20 → MCHOB 20:33
PROVIDERS: ADMIT Obstetrics & Gynecology; ATTEND Obstetrics & Gynecology

== ENCOUNTER 2021-03-31 18:01 | Inpatient (IN) ==
[2021-03-31] MEDS ORDERED: Dinoprostone 10 MG VAG.SUPP VAGINAL ONE (19:15)
[2021-03-31] MEDS ORDERED: Buffered Lidocaine 1% SYRIN 1 ml INTRADERM ONE (19:15)
[2021-03-31] MEDS ORDERED: Lactated Ringers 1000 ml BAG 1,000 ML IV ONE (19:15)
[2021-03-31 22:09] LABS: Urine Benzodiazepine Screen None Detected (None Detect); Urine Cannabinoids Screen None Detected (None Detect); Urine Opiates Screen None Detected (None Detect)
[2021-04-01] MEDS ORDERED: Dinoprostone 10 MG VAG.SUPP VAGINAL ONE (10:33)
[2021-04-01 15:44] LABS: Urine Appearance Clear; Urine Bilirubin Negative (Negative); Urine Blood Negative (Negative); Urine Color Straw; Urine Glucose 1+(50 mg/dL) (Negative); Urine Ketones Negative (Negative); Urine Nitrite Negative (Negative); Urine Protein Negative (Negative); Urine Urobilinogen Negative (Negative)
[2021-04-01] MEDS ORDERED: Morphine 10 MG/ML VIAL (1 ml) IM ONE (15:49)
[2021-04-01] MEDS ORDERED: Promethazine INJ(RESTRICTED) 25 MG/ML 1 ml VIAL IV ONE (15:51)
[2021-04-01] MEDS ORDERED: OBEPIDURAL 250 ML EPIDURAL ONE (16:39)
[2021-04-01 17:11] LABS: ABS Lymphocytes 1.5 10^3/ul (1.0-4.8); ABS Monocytes 0.8 10^3/ul (0-0.8); ABS Neutrophils 10.8 10^3/ul (1.5-7.7); Eosinophil % 0.1 %; Hematocrit 38 % (35-47); Hemoglobin 12.9 g/dL (12.0-16.0); Lymphocyte % 11.4 %; Mean Corpuscular HGB Conc 34 g/dL (31-36); Mean Corpuscular Hemoglobin 29 pg (27-31); Mean Corpuscular Volume 85 fL (80-97); Platelet Count 339 10^3/uL (150-450); Red Blood Count 4.43 10^6 /uL (3.70-4.87); Red Cell Distribution Width 14 % (10-15); White Blood Count 13.2 10^3/uL (3.5-10.8)
[2021-04-01] MEDS ORDERED: Lactated Ringers 1000 ml BAG 1,000 ML IV ONE (17:16)
[2021-04-01] MEDS ORDERED: Sodium Citrate/Citric Acid LIQ 15 ML UDC PO PRN (17:16)
[2021-04-01] MEDS ORDERED: EPHEDrine (Pressors) 50 MG/ML VIAL IV PUSH PRN ×2 (17:16)
[2021-04-01] MEDS ORDERED: Phenylephrine 40 mcg/mL 10mL (400mcg) SYRINGE IV PUSH PRN ×2 (17:16)
[2021-04-01] MEDS ORDERED: Terbutaline INJ 1 MG/ML 1 ml VIAL ONE (17:41)
[2021-04-01] MEDS ORDERED: ceFOXitin 2 GM IVPREMIX 2 GM/50 ML BAG IVPB ONE (17:53)
[2021-04-01] MEDS ORDERED: ceFOXitin 2 GM IVPREMIX 2 GM/50 ML BAG ONE (17:56)
[2021-04-01] MEDS ORDERED: Lactated Ringers 1000 ml BAG 1,000 ML IV SCH (18:00)
[2021-04-01] MEDS ORDERED: OBEPIDURAL 250 ML EPIDURAL SCH (18:00)
[2021-04-01] MEDS ORDERED: Sodium Citrate/Citric Acid LIQ 15 ML UDC ONE (18:06)
[2021-04-01] MEDS ORDERED: Lidocaine 2% PF 10 ML AMP ONE (18:07)
[2021-04-01] MEDS ORDERED: Morphine PF AMP (0.5MG/ML) 5 MG/10 ML AMP ONE (18:21)
[2021-04-01] MEDS ORDERED: Phenylephrine 40 mcg/mL 10mL (400mcg) SYRINGE ONE ×2 (18:34→18:41)
[2021-04-01] MEDS ORDERED: Oxytocin 10 UNITS/ML 1 ML VIAL ONE ×3 (18:44→19:05)
[2021-04-01] MEDS ORDERED: Naloxone 0.4 mg VIAL 0.4 mg/ml 1 ml VIAL IV PRN ×3 (19:16→22:10)
[2021-04-01] MEDS ORDERED: DiMENhydriNATE IV 50 mg/ml 1 ml VIAL IV PUSH PRN (19:37)
[2021-04-01] MEDS ORDERED: Ondansetron 4 mg VIAL 2 MG/ML 2 ml VIAL IV PRN ×2 (19:37→22:10)
[2021-04-01] MEDS ORDERED: Glycerin ADULT 2.4 gm SUPP PR PRN (19:56)
[2021-04-01] MEDS ORDERED: Witch Hazel PAD JAR TOPICAL PRN (19:56)
[2021-04-01] MEDS ORDERED: Dibucaine 1% OINT 28.35 GM TUBE PR PRN (19:56)
[2021-04-01] MEDS ORDERED: Oxytocin in LR 20 UNITS/1,000 ML BAG IVPB ONE (21:09)
[2021-04-01] MEDS ORDERED: oxyCODONE/Acetamin 5/325 mg TAB PO PRN ×2 (22:10)
[2021-04-01] MEDS ORDERED: diPHENhydraMINE IV 50 MG/ML 1 ml VIAL (BENADRYL) IV PRN (22:10)
[2021-04-01 23:25] LABS: Urine Appearance Cloudy; Urine Bilirubin Negative (Negative); Urine Blood Negative (Negative); Urine Color Yellow; Urine Glucose 1+(50 mg/dL) (Negative); Urine Ketones 1+ (Negative); Urine Nitrite Negative (Negative); Urine Protein 2+(100 mg/dL) (Negative); Urine Specific Gravity 1.021 (1.002-1.030); Urine Urobilinogen Negative (Negative)
[2021-04-01 23:32] LABS: Urine Bacteria Absent (Absent); Urine Red Blood Cell Absent (Absent); Urine Squamous Epithelial Cell Present (Absent); Urine White Blood Cell Trace(0-5/hpf) (Absent)
[2021-04-02 06:58] LABS: ABS Lymphocytes 1.4 10^3/ul (1.0-4.8); ABS Monocytes 0.6 10^3/ul (0-0.8); ABS Neutrophils 5.3 10^3/ul (1.5-7.7); Eosinophil % 0.1 %; Hematocrit 27 % (35-47); Hemoglobin 9.5 g/dL (12.0-16.0); Lymphocyte % 18.4 %; Mean Corpuscular HGB Conc 35 g/dL (31-36); Mean Corpuscular Hemoglobin 30 pg (27-31); Mean Corpuscular Volume 85 fL (80-97); Mean Platelet Volume 7.6 fL (7.4-10.4); Platelet Count 189 10^3/uL (150-450); Red Blood Count 3.21 10^6 /uL (3.70-4.87); Red Cell Distribution Width 14 % (10-15); White Blood Count 7.3 10^3/uL (3.5-10.8)
[2021-04-02] MEDS: Docusate LIQ 100 MG/10 ML UDC PO SCH (21:13)
[2021-04-02] MEDS: Ibuprofen ADULT LIQ 600 MG/30 ML UDC PO SCH (21:13)
[2021-04-03] MEDS: Ibuprofen ADULT LIQ 600 MG/30 ML UDC PO SCH ×4 (03:21→20:18)
[2021-04-03] MEDS: Docusate LIQ 100 MG/10 ML UDC PO SCH ×2 (08:09→20:22)
[2021-04-03 20:43] VITALS: BP 126/67
[2021-04-04] MEDS: Ibuprofen ADULT LIQ 600 MG/30 ML UDC PO SCH ×3 (05:31→12:00)
[2021-04-04] MEDS: Docusate LIQ 100 MG/10 ML UDC PO SCH (08:45)
== END 2021-04-04 12:27 | disposition home or self-care (01) | DRG 540 ==
LOC: MCHOBOUT 18:01 → MCHOB 20:12
PROVIDERS: ADMIT Obstetrics & Gynecology; ATTEND Obstetrics & Gynecology